=== PATIENT | male | born 1950 | race Two or more races ===

== ENCOUNTER 2018-06-07 13:09 | Emergency (ER) | payer MEDICARE ==
[~2018-06-07] VITALS: Ht 180.3 cm; Wt 78.9 kg
[~2018-06-07 13:09] MED LIST: ASPI-498 PO; FERR-7 PO; FURO40TA4 PO; MET25T PO; POTA20TA53 PO
[2018-06-07 14:56] LABS: Basophils # (auto) 0 uL; Basophils % (auto) 0.5 % (0.0-2.0); Eosinophils # (auto) 0.2 uL; Eosinophils % (auto) 2.5 % (0.0-7.0); Hematocrit 37.2 % (41.0-53.0); Hemoglobin 12.2 g/dL (13.5-17.5); Mean Corpuscular Hemoglobin 32.3 pg (28.0-32.0); Mean Corpuscular Hgb Conc. 32.8 g/dL (32.0-36.0); Mean Corpuscular Volume 98.5 fL (80.0-100.0); Monocytes % (auto) 12.1 % (0.0-12.0); Neutrophils # (auto) 5.3 uL; Neutrophils % (auto) 61.9 % (37.0-80.0); Nucleated Red Blood Cells % 0.1 %; Platelet Count (auto) 324 10^3/uL (140-450); Red Blood Cells 3.78 10^6/uL (4.5-5.90); Red Cell Distribution Width 17.8 % (11.8-14.3); White Blood Cell 8.6 10^3/uL (4.4-10.8)
[2018-06-07 15:12] LABS: Albumin 3.2 g/dL (3.4-5.0); Anion Gap 4 (5-15); Calcium 8.7 mg/dL (8.5-10.1); Carbon Dioxide 27 mmol/L (21-32); Chloride 106 mmol/L (98-107); Glucose 97 mg/dL (74-106); Potassium 5.2 mmol/L (3.5-5.1); Sodium 137 mmol/L (136-145)
[2018-06-07 15:18] LABS: Alanine Aminotransferase 34 U/L (16-61); Alkaline Phosphatase 171 U/L (45-117); Aspartate Aminotransferase 20 U/L (15-37); Bilirubin, Total 0.5 mg/dL (0.2-1.0); GFR African American 102 mL/min; GFR Non-African American 84 mL/min; Total Protein 8.1 g/dL (6.4-8.2)
[2018-06-07 15:26] LABS: BUN/Creatinine Ratio 11.6; Blood Urea Nitrogen 11 mg/dL (7-18)
[2018-06-07 18:22] VITALS: BP 124/67
== END 2018-06-07 19:12 | disposition home or self-care (01) ==
LOC: ER 13:09
DX: R20.2 Paresthesia of skin (principal); R20.0 Anesthesia of skin; D64.9 Anemia, unspecified; I25.810 Atherosclerosis of coronary artery bypass graft(s) without angina pectoris; E78.5 Hyperlipidemia, unspecified; I10 Essential (primary) hypertension; F17.210 Nicotine dependence, cigarettes, uncomplicated; Z95.1 Presence of aortocoronary bypass graft
CPT/HCPCS: 36415; 80053; 84132; 84484; 85025; 93005

== ENCOUNTER → 2018-06-11 | Outpatient (CLI) | payer MEDICARE | END | disposition home or self-care (01) | LOC: LAB 14:55 | PROVIDERS: ATTEND Thoracic Surgery (Cardiothoracic Vascular Surgery) | DX: T14.8XXA Other injury of unspecified body region, initial encounter (principal) | CPT/HCPCS: 87205 ==

== ENCOUNTER → 2018-06-30 | Outpatient (CLI) | payer MEDICARE ==
[2018-06-30 13:40] LABS: Albumin 3.4 g/dL (3.4-5.0); Bilirubin, Direct 0.1 mg/dL (0-0.2); Bilirubin, Total 0.3 mg/dL (0.2-1.0); Total Protein 7.8 g/dL (6.4-8.2)
== END | disposition home or self-care (01) ==
LOC: LAB 12:39
PROVIDERS: ATTEND Internal Medicine
DX: R94.5 Abnormal results of liver function studies (principal)
CPT/HCPCS: 36415; 80076

== ENCOUNTER → 2018-07-31 | Outpatient (CLI) | payer MEDICARE ==
[~2018-07-31] MED LIST changes: +ATOR10TA PO; +ATOR10TA52; +LORA-654; +LORA-654 PO; +METF-370 PO; +METF-869
[2018-07-31 13:11] LABS: Albumin 3.2 g/dL (3.4-5.0); Bilirubin, Direct 0.1 mg/dL (0-0.2); Bilirubin, Total 0.4 mg/dL (0.2-1.0); Total Protein 7.6 g/dL (6.4-8.2)
== END | disposition home or self-care (01) ==
LOC: LAB 11:16
PROVIDERS: ATTEND Internal Medicine
DX: N40.0 Benign prostatic hyperplasia without lower urinary tract symptoms (principal); R73.03 Prediabetes; R94.5 Abnormal results of liver function studies; I11.0 Hypertensive heart disease with heart failure; I50.20 Unspecified systolic (congestive) heart failure
CPT/HCPCS: 36415; 80061; 80076; 83036; 84153

== ENCOUNTER → 2018-08-13 | Outpatient (CLI) | payer MEDICARE ==
[~2018-08-13] MED LIST changes: -ATOR10TA PO; -ATOR10TA52; -LORA-654; -LORA-654 PO; -METF-370 PO; -METF-869
== END | disposition home or self-care (01) ==
LOC: LAB 12:18
PROVIDERS: ATTEND Internal Medicine
DX: E11.9 Type 2 diabetes mellitus without complications (principal); I11.0 Hypertensive heart disease with heart failure; I50.20 Unspecified systolic (congestive) heart failure; F17.210 Nicotine dependence, cigarettes, uncomplicated; E78.5 Hyperlipidemia, unspecified
CPT/HCPCS: 36415; 83880; 84443

== ENCOUNTER 2018-08-16 16:24 | Inpatient (IN) | payer MEDICARE ==
[~2018-08-16] VITALS: Ht 180.3 cm; Wt 88.0 kg
[2018-08-16 17:39] LABS: Basophils # (auto) 0 uL; Basophils % (auto) 0.6 % (0.0-2.0); Eosinophils # (auto) 0.2 uL; Eosinophils % (auto) 2.1 % (0.0-7.0); Hematocrit 40.1 % (41.0-53.0); Hemoglobin 12.9 g/dL (13.5-17.5); Lymphocytes # (auto) 1.2 uL; Lymphocytes % (auto) 14.4 % (10.0-50.0); Mean Corpuscular Hemoglobin 31.5 pg (28.0-32.0); Mean Corpuscular Hgb Conc. 32.2 g/dL (32.0-36.0); Mean Corpuscular Volume 97.8 fL (80.0-100.0); Monocytes # (auto) 0.8 uL; Neutrophils % (auto) 72.9 % (37.0-80.0); Nucleated Red Blood Cells % 0.1 %; Platelet Count (auto) 276 10^3/uL (140-450); Red Cell Distribution Width 15.9 % (11.8-14.3); White Blood Cell 8.2 10^3/uL (4.4-10.8)
[2018-08-16 17:51] LABS: Albumin 3.2 g/dL (3.4-5.0); BUN/Creatinine Ratio 18.2; Potassium 4.2 mmol/L (3.5-5.1)
[2018-08-16 17:55] LABS: Bilirubin, Total 0.5 mg/dL (0.2-1.0); Total Protein 7.7 g/dL (6.4-8.2)
[2018-08-16] MEDS ORDERED: ASPirin 81 mg TAB PO ONE ×2 (18:00→18:45)
[2018-08-16] MEDS ORDERED: cefTRIAXone 1GM/50ML D5W 50 ML IV ONE (18:00)
[2018-08-16] MEDS ORDERED: ATOR10TA52 (18:40)
[2018-08-16] MEDS ORDERED: METF-869 (18:40)
[2018-08-16] MEDS ORDERED: LORA-654 (18:40)
[2018-08-16 19:11] LABS: INR 0.96 (0.9-1.15); Partial Thromboplastin Time 28.2 sec (23.78-33.04); Prothrombin Time 10.3 sec (9.27-12.13)
[2018-08-16] MEDS ORDERED: ACETAMINOPHEN 500 MG TAB PO PRN (20:15)
[2018-08-16] MEDS ORDERED: ONDANSETRON HCL 4 MG/2 ML VIAL IV PRN (20:15)
[2018-08-16] MEDS ORDERED: MORPHINE SULF INJ 2 MG/ML SYRINGE 1ML IV PRN (20:15)
[2018-08-16] MEDS ORDERED: LORazepam 0.5 MG TAB PO PRN (20:15)
[2018-08-16] MEDS ORDERED: FUROSEMIDE 20 MG/2 ML VIAL IV ONE (20:15)
[2018-08-16] MEDS: DOXYCYCLINE 100MG/250ML 250 ML IV SCH (20:43)
[2018-08-16 22:00] VITALS: BP 121/71
[2018-08-16] MEDS ORDERED: ATORVASTATIN 20 MG TAB PO SCH (22:00)
[2018-08-16 22:06] VITALS: BP 121/71
[2018-08-16] MEDS: METOPROLOL TARTRATE 25 MG TAB PO SCH (22:38)
[2018-08-16] MEDS ORDERED: METF-370 PO (23:22)
[2018-08-16] MEDS ORDERED: ATOR10TA PO (23:22)
[2018-08-16] MEDS ORDERED: FURO40TA4 PO (23:22)
[2018-08-16] MEDS ORDERED: LORA-654 PO (23:22)
[2018-08-17 02:28] LABS: Basophils # (auto) 0.1 uL; Basophils % (auto) 1.2 % (0.0-2.0); Eosinophils # (auto) 0.1 uL; Eosinophils % (auto) 0.8 % (0.0-7.0); Hematocrit 39.6 % (41.0-53.0); Lymphocytes % (auto) 18.7 % (10.0-50.0); Mean Corpuscular Hemoglobin 31.9 pg (28.0-32.0); Mean Corpuscular Hgb Conc. 32.8 g/dL (32.0-36.0); Mean Corpuscular Volume 97.3 fL (80.0-100.0); Monocytes # (auto) 1.1 uL; Monocytes % (auto) 10.7 % (0.0-12.0); Neutrophils # (auto) 7.2 uL; Neutrophils % (auto) 68.6 % (37.0-80.0); Platelet Count (auto) 272 10^3/uL (140-450); Red Blood Cells 4.07 10^6/uL (4.5-5.90); Red Cell Distribution Width 15.6 % (11.8-14.3); White Blood Cell 10.4 10^3/uL (4.4-10.8)
[2018-08-17 02:52] LABS: Anion Gap 6 (5-15); BUN/Creatinine Ratio 16.2; Blood Urea Nitrogen 16 mg/dL (7-18); Calcium 8.8 mg/dL (8.5-10.1); Carbon Dioxide 25 mmol/L (21-32); Chloride 107 mmol/L (98-107); GFR African American 97 mL/min; GFR Non-African American 80 mL/min; Glucose 110 mg/dL (74-106); Potassium 3.9 mmol/L (3.5-5.1); Sodium 138 mmol/L (136-145)
[2018-08-17] MEDS ORDERED: FUROSEMIDE 40 MG/4 ML VIAL IV SCH (06:00)
[2018-08-17 08:00] VITALS: BP 128/74
[2018-08-17] MEDS: DOXYCYCLINE 100MG/250ML 250 ML IV SCH ×2 (08:04→20:26)
[2018-08-17 09:00] VITALS: BP 124/72
[2018-08-17] MEDS: PANTOPRAZOLE 40 MG TAB PO SCH (10:43)
[2018-08-17] MEDS: ASPirin-EC 81 mg tab PO SCH (10:43)
[2018-08-17] MEDS: METOPROLOL TARTRATE 25 MG TAB PO SCH ×2 (10:46→22:10)
[2018-08-17] MEDS ORDERED: IOHEXOL 300 MG/ML 100ML BOTTLE IJ ONE (12:59)
[2018-08-17 13:00] VITALS: BP 126/74
[2018-08-17 15:14] LABS: Potassium 3.9 mmol/L (3.5-5.1)
[2018-08-17 15:21] LABS: Albumin 2.7 g/dL (3.4-5.0); BUN/Creatinine Ratio 17.7; Bilirubin, Total 0.6 mg/dL (0.2-1.0); Calcium 8.7 mg/dL (8.5-10.1); Total Protein 6.9 g/dL (6.4-8.2)
[2018-08-17] MEDS: FUROSEMIDE 40 MG/4 ML VIAL IV SCH ×2 (15:48→22:11)
[2018-08-17] MEDS: HEPARIN SODIUM (PORCINE) 5000 UNITS/ML 1ML VIAL SC SCH ×2 (15:53→22:09)
[2018-08-17 20:00] VITALS: BP 113/66
[2018-08-17 21:52] VITALS: BP 113/66
[2018-08-17] MEDS: ATORVASTATIN 20 MG TAB PO SCH (22:10)
[2018-08-18 05:14] VITALS: BP 133/73
[2018-08-18] MEDS: FUROSEMIDE 40 MG/4 ML VIAL IV SCH ×3 (05:59→22:00)
[2018-08-18] MEDS: HEPARIN SODIUM (PORCINE) 5000 UNITS/ML 1ML VIAL SC SCH ×3 (06:01→21:17)
[2018-08-18 07:19] LABS: Basophils # (auto) 0 uL; Basophils % (auto) 0.6 % (0.0-2.0); Eosinophils # (auto) 0.2 uL; Eosinophils % (auto) 2.9 % (0.0-7.0); Hematocrit 38.5 % (41.0-53.0); Hemoglobin 12.7 g/dL (13.5-17.5); Lymphocytes # (auto) 1.7 uL; Lymphocytes % (auto) 22.2 % (10.0-50.0); Mean Corpuscular Hemoglobin 31.8 pg (28.0-32.0); Mean Corpuscular Hgb Conc. 32.9 g/dL (32.0-36.0); Mean Corpuscular Volume 96.6 fL (80.0-100.0); Monocytes # (auto) 0.8 uL; Neutrophils # (auto) 4.9 uL; Neutrophils % (auto) 64.3 % (37.0-80.0); Nucleated Red Blood Cells % 0.1 %; Platelet Count (auto) 242 10^3/uL (140-450); Red Blood Cells 3.98 10^6/uL (4.5-5.90); Red Cell Distribution Width 15.8 % (11.8-14.3); White Blood Cell 7.7 10^3/uL (4.4-10.8)
[2018-08-18 08:00] VITALS: BP 130/71
[2018-08-18] MEDS: DOXYCYCLINE 100MG/250ML 250 ML IV SCH ×2 (08:20→20:23)
[2018-08-18] MEDS: PANTOPRAZOLE 40 MG TAB PO SCH (09:41)
[2018-08-18] MEDS: METOPROLOL TARTRATE 25 MG TAB PO SCH ×2 (09:42→22:00)
[2018-08-18] MEDS: ASPirin-EC 81 mg tab PO SCH (09:42)
[2018-08-18] MEDS: CEFTRIAXONE SODIUM 2 GM in D5W 5% 50 ML IV SCH (13:50)
[2018-08-18 15:56] LABS: Alcohol, Urine < 3.0 mg/dL (0-5); Amphetamine Screen, Urine NEGATIVE (NEGATIVE); Barbiturate Scree,Urine NEGATIVE (NEGATIVE); Benzodiazephine Screen, Urine NEGATIVE (NEGATIVE); Cannabinoid Screen, Urine NEGATIVE (NEGATIVE); Cocaine Screen, Urine NEGATIVE (NEGATIVE); Opiate Scree,Urine NEGATIVE (NEGATIVE); Phencyclidine Screen, Urine NEGATIVE (NEGATIVE)
[2018-08-18 16:00] LABS: Urine Bacteria NONE SEEN /hpf (None Seen); Urine Blood Negative /uL (Negative); Urine Mucus FEW (None Seen); Urine Specific Gravity 1.013 (1.001-1.035); Urine WBC 1 /hpf (0 - 3)
[2018-08-18 20:00] VITALS: BP 116/53
[2018-08-18] MEDS: ATORVASTATIN 20 MG TAB PO SCH (21:17)
[2018-08-18 22:00] VITALS: BP 116/53
[2018-08-18] MEDS: SACUBITRIL-VALSARTAN 24mg/26mg TAB PO SCH (22:00)
[2018-08-19 04:59] VITALS: BP 128/66
[2018-08-19] MEDS: FUROSEMIDE 40 MG/4 ML VIAL IV SCH ×2 (05:21→13:05)
[2018-08-19] MEDS: HEPARIN SODIUM (PORCINE) 5000 UNITS/ML 1ML VIAL SC SCH ×2 (05:23→13:04)
[2018-08-19 06:48] LABS: Potassium 3.3 mmol/L (3.5-5.1)
[2018-08-19 06:56] LABS: Calcium 8.7 mg/dL (8.5-10.1)
[2018-08-19] MEDS ORDERED: ALBUMIN 25% 100 ML IV ONE (08:15)
[2018-08-19] MEDS ORDERED: POTASSIUM CHL 10% (20 MEQ/15ML) 15ml ORAL SOLN PO ONE (08:15)
[2018-08-19] MEDS: DOXYCYCLINE 100MG/250ML 250 ML IV SCH (08:15)
[2018-08-19 08:18] VITALS: BP 123/73
[2018-08-19] MEDS ORDERED: POTASSIUM CHLORIDE 20 MEQ, LIDOCAINE 1% (LOCAL ANESTH.) 2 ML in SODIUM CHL 0.9% 100 ML IV ONE (08:45)
[2018-08-19] MEDS: PANTOPRAZOLE 40 MG TAB PO SCH (10:02)
[2018-08-19] MEDS: SACUBITRIL-VALSARTAN 24mg/26mg TAB PO SCH (10:02)
[2018-08-19] MEDS: METOPROLOL TARTRATE 25 MG TAB PO SCH (10:03)
[2018-08-19] MEDS: ASPirin-EC 81 mg tab PO SCH (10:03)
[2018-08-19] MEDS: CEFTRIAXONE SODIUM 2 GM in D5W 5% 50 ML IV SCH (10:07)
[2018-08-19 13:01] VITALS: BP 104/66
[2018-08-19 13:30] VITALS: BP 104/66
== END 2018-08-19 16:15 | disposition home or self-care (01) | DRG 291 ==
LOC: ER 16:27 → TELE 20:18 → TELE-WESTW 21:50
PROVIDERS: ADMIT Nurse Practitioner Family; ATTEND Internal Medicine
DX: I11.0 Hypertensive heart disease with heart failure (principal); J18.9 Pneumonia, unspecified organism; J96.00 Acute respiratory failure, unspecified whether with hypoxia or hypercapnia; E44.1 Mild protein-calorie malnutrition; I24.9 Acute ischemic heart disease, unspecified; E78.5 Hyperlipidemia, unspecified; I25.10 Atherosclerotic heart disease of native coronary artery without angina pectoris; I50.43 Acute on chronic combined systolic (congestive) and diastolic (congestive) heart failure; F17.210 Nicotine dependence, cigarettes, uncomplicated; F41.9 Anxiety disorder, unspecified; I25.2 Old myocardial infarction; Z79.82 Long term (current) use of aspirin; Z82.0 Family history of epilepsy and other diseases of the nervous system; Z82.49 Family history of ischemic heart disease and other diseases of the circulatory system; Z95.1 Presence of aortocoronary bypass graft
CPT/HCPCS: 36415; 71046; 71260; 80048; 80053; 80307; 81001; 83036; 83605; 83735; 83880; 84443; 84484; 85025; 85610; 85730; 87040; 93005; 93306; 94761; 96365; 96375; G0378; J0696; J2001; J3490; J7060; P9047

== ENCOUNTER → 2018-09-02 | Outpatient (CLI) | payer MEDICARE ==
[~2018-09-02] MED LIST changes: +ATOR10TA PO; -FERR-7 PO; +LORA-654 PO; +METF-370 PO; -POTA20TA53 PO
[2018-09-02 13:33] LABS: Albumin 3.3 g/dL (3.4-5.0); Calcium 8.8 mg/dL (8.5-10.1); Potassium 4.6 mmol/L (3.5-5.1)
[2018-09-02 13:36] LABS: BUN/Creatinine Ratio 19.2; Bilirubin, Total 0.3 mg/dL (0.2-1.0); Total Protein 7.6 g/dL (6.4-8.2)
== END | disposition home or self-care (01) ==
LOC: LAB 12:41
PROVIDERS: ATTEND Internal Medicine
DX: R73.03 Prediabetes (principal); R94.5 Abnormal results of liver function studies
CPT/HCPCS: 36415; 80053; 82043

== ENCOUNTER → 2018-11-25 | Outpatient (CLI) | payer MEDICARE ==
[~2018-11-25] MED LIST changes: +ATO40T PO; -ATOR10TA PO; -FURO40TA4 PO; -LORA-654 PO; +LORA0.5T12 PO; -MET25T PO; +PANT1INJ3 PO
[2018-11-25 12:27] LABS: Albumin 3.9 g/dL (3.4-5.0)
[2018-11-25 12:32] LABS: Bilirubin, Direct 0.2 mg/dL (0-0.2); Bilirubin, Total 0.6 mg/dL (0.2-1.0); Total Protein 8.4 g/dL (6.4-8.2)
== END | disposition home or self-care (01) ==
LOC: LAB 11:24
PROVIDERS: ATTEND Internal Medicine
DX: I25.810 Atherosclerosis of coronary artery bypass graft(s) without angina pectoris (principal); R73.03 Prediabetes; R94.5 Abnormal results of liver function studies; N40.0 Benign prostatic hyperplasia without lower urinary tract symptoms
CPT/HCPCS: 36415; 80061; 80076; 83036; 84153

== ENCOUNTER → 2018-11-28 | Outpatient (CLI) | payer MEDICARE | END | disposition home or self-care (01) | LOC: XYW 08:32 | PROVIDERS: ATTEND Internal Medicine | DX: I08.3 Combined rheumatic disorders of mitral, aortic and tricuspid valves (principal); I25.10 Atherosclerotic heart disease of native coronary artery without angina pectoris; I48.91 Unspecified atrial fibrillation; I11.0 Hypertensive heart disease with heart failure; I50.43 Acute on chronic combined systolic (congestive) and diastolic (congestive) heart failure | CPT/HCPCS: 93306 ==

== ENCOUNTER 2019-01-21 10:08 | Inpatient (IN) | payer MEDICARE ==
[2019-01-20 10:15] LABS: Basophils # (auto) 0 uL; Basophils % (auto) 0.6 % (0.0-2.0); Eosinophils # (auto) 0.2 uL; Eosinophils % (auto) 2.9 % (0.0-7.0); Hematocrit 42.2 % (41.0-53.0); Hemoglobin 13.9 g/dL (13.5-17.5); Lymphocytes # (auto) 1.6 uL; Lymphocytes % (auto) 22.4 % (10.0-50.0); Mean Corpuscular Hemoglobin 31.9 pg (28.0-32.0); Mean Corpuscular Hgb Conc. 32.8 g/dL (32.0-36.0); Mean Corpuscular Volume 97.3 fL (80.0-100.0); Monocytes # (auto) 0.7 uL; Monocytes % (auto) 10.4 % (0.0-12.0); Neutrophils # (auto) 4.4 uL; Neutrophils % (auto) 63.7 % (37.0-80.0); Nucleated Red Blood Cells % 0.1 %; Platelet Count (auto) 216 10^3/uL (140-450); Red Blood Cells 4.34 10^6/uL (4.5-5.90); Red Cell Distribution Width 15.8 % (11.8-14.3)
[2019-01-20 10:48] LABS: INR 0.95 (0.9-1.15); Partial Thromboplastin Time 27.3 sec (23.64-32.05)
[2019-01-20 11:13] LABS: Albumin 4.1 g/dL (3.4-5.0); Calcium 9.6 mg/dL (8.5-10.1); Potassium 4.8 mmol/L (3.5-5.1)
[2019-01-20 11:17] LABS: BUN/Creatinine Ratio 20.6; Bilirubin, Total 0.6 mg/dL (0.2-1.0); Total Protein 8.4 g/dL (6.4-8.2)
[~2019-01-21] VITALS: Ht 180.3 cm; Wt 90.7 kg
[~2019-01-21 10:08] MED LIST changes: +CARV6.25 PO; +CLOP75TA28 PO; +ENAL2.5T PO; +FERR-20 PO; +FURO1TAB31 PO; -LORA0.5T12 PO; +POTA-220 PO
[2019-01-21] MEDS ORDERED: ANGIOMAX 250 MG VIAL IV ONE ×4 (11:01→16:19)
[2019-01-21] MEDS ORDERED: fentaNYL CITRATE 100 MCG/2 ML VL ONE ×3 (11:01→16:22)
[2019-01-21] MEDS ORDERED: LIDOCAINE 2%HCL (LOCAL ANESTH.) INJ 20ML MDV ONE (11:02)
[2019-01-21] MEDS ORDERED: SODIUM CHL 0.9% 50 ML ONE ×4 (11:02→16:20)
[2019-01-21] MEDS ORDERED: MIDAZOLAM HCL 1MG/1ML-2 ML VIAL ONE ×4 (11:02→16:23)
[2019-01-21] MEDS ORDERED: IOHEXOL 350 MG/ML 100ML IJ ONE ×2 (11:02→15:50)
[2019-01-21] MEDS ORDERED: hydrALAZINE HCL 20 MG/ML VL ONE ×2 (12:11→17:18)
[2019-01-21] MEDS ORDERED: IODIXANOL 320MG/ML 100ML BTL IV ONE ×2 (16:11→17:39)
[2019-01-21] MEDS ORDERED: NITROGLYCERIN 5MG/ML 10ML VIAL IV ONE (16:57)
[2019-01-21] MEDS ORDERED: VERAPAMIL 2.5MG/ML INJ 2ML VIAL IV ONE (16:57)
[2019-01-21] MEDS ORDERED: ACETAMINOPHEN 500 MG TAB PO PRN (17:45)
[2019-01-21] MEDS ORDERED: SODIUM CHLORIDE 0.9% 1,000 ML IV ONE ×2 (17:45→18:00)
[2019-01-21] MEDS ORDERED: MORPHINE SULF INJ 2 MG/ML SYRINGE 1ML IV PRN (17:45)
[2019-01-21] MEDS ORDERED: DEXTROSE (50%) 50ML SYRG IV PRN (17:45)
[2019-01-21] MEDS ORDERED: HYDROcodone-ACET 5/325MG TAB PO PRN (17:45)
[2019-01-21] MEDS ORDERED: ONDANSETRON HCL 4 MG/2 ML VIAL IV PRN (17:45)
[2019-01-21] MEDS ORDERED: NITROGLYCERIN 0.4 MG SL TAB SL PRN (17:45)
--- NOTE | 2019-01-21 19:45 | NUR ---
MS admit from ER AMBER TUTTLE admitted to tele/MS after SBAR received. Patient oriented to Eunice Foreman, primary RN, unit, room, bed, and unit policies regarding patient care and visiting hours. Patient weighed by bedscale and encouraged to call if they need something. All questions and concerns addressed, patient verbalized understanding. Note:
[2019-01-21 21:19] VITALS: BP 132/66
[2019-01-21] MEDS: InsuLIN REG 1unit/0.01ml Soln (100units/ml) SC SCH (21:19)
[2019-01-21] MEDS: ACCU-CHEK COMFORT CURVE STRIP VI SCH (21:20)
[2019-01-21] MEDS: SODIUM CHLOR 0.9% PF (SALINE LOCK) 10ML VIAL/SYR IV SCH (21:43)
[2019-01-21] MEDS: CARVEDILOL 3.125 MG TAB PO SCH (21:44)
[2019-01-21] MEDS: ENALAPRIL MALEATE 2.5 MG TAB PO SCH (21:44)
[2019-01-21] MEDS: ATORVASTATIN 20 MG TAB PO SCH (21:44)
[2019-01-21] MEDS: SODIUM CHLORIDE 0.9% 1,000 ML IV SCH (23:52)
[2019-01-22 05:14] VITALS: BP 121/59
[2019-01-22] MEDS: SODIUM CHLOR 0.9% PF (SALINE LOCK) 10ML VIAL/SYR IV SCH ×3 (06:03→21:55)
[2019-01-22] MEDS: ACCU-CHEK COMFORT CURVE STRIP VI SCH (06:03)
[2019-01-22] MEDS: InsuLIN REG 1unit/0.01ml Soln (100units/ml) SC SCH (06:03)
--- NOTE | 2019-01-22 08:00 | NUR ---
Opening Shift Note Assumed care of patient, awake and alert. No S/S of distress/SOB or pain. Instructed on POC and to call for assist PRN, will continue to monitor for changes Q1hr and PRN.
[2019-01-22 09:00] VITALS: BP 129/59
[2019-01-22] MEDS: POTASSIUM CHL 20 Meq TABLET PO SCH (10:03)
[2019-01-22] MEDS: FUROSEMIDE 40 MG TAB PO SCH (10:03)
[2019-01-22] MEDS: ASPirin-EC 81 mg tab PO SCH (10:03)
[2019-01-22] MEDS: CARVEDILOL 3.125 MG TAB PO SCH ×2 (10:03→21:55)
[2019-01-22] MEDS: CLOPIDOGREL BISULFATE 75 MG TAB PO SCH (10:03)
[2019-01-22] MEDS: ENALAPRIL MALEATE 2.5 MG TAB PO SCH ×2 (10:04→21:55)
[2019-01-22] MEDS: FERROUS SULFATE 325 MG TAB PO SCH (12:08)
[2019-01-22 12:41] VITALS: BP 137/61
[2019-01-22] MEDS: SODIUM CHLORIDE 0.9% 1,000 ML IV SCH (15:48)
[2019-01-22 17:05] VITALS: BP 129/95
--- NOTE | 2019-01-22 19:09 | NUR ---
OPENING NOTE Received report from day shift RN. Patient is sitting on chair at bedside with no s/s of distress noted. Patient's family is at bedside. Educated patient on POC and to use call light when in need of assistance. Patient verbalized understanding. Call light is within reach of patient. Will continue care.
[2019-01-22] MEDS: ATORVASTATIN 20 MG TAB PO SCH (21:55)
[2019-01-22 22:00] VITALS: BP 144/68
[2019-01-23 05:00] VITALS: BP 144/77
[2019-01-23] MEDS: SODIUM CHLORIDE 0.9% 1,000 ML IV SCH (05:45)
[2019-01-23] MEDS: SODIUM CHLOR 0.9% PF (SALINE LOCK) 10ML VIAL/SYR IV SCH (05:45)
[2019-01-23 06:35] LABS: Basophils # (auto) 0.1 uL; Basophils % (auto) 0.6 % (0.0-2.0); Eosinophils # (auto) 0.1 uL; Eosinophils % (auto) 1.2 % (0.0-7.0); Hematocrit 36.2 % (41.0-53.0); Lymphocytes # (auto) 1.5 uL; Lymphocytes % (auto) 17.1 % (10.0-50.0); Mean Corpuscular Hemoglobin 32.5 pg (28.0-32.0); Mean Corpuscular Hgb Conc. 33.3 g/dL (32.0-36.0); Mean Corpuscular Volume 97.9 fL (80.0-100.0); Monocytes # (auto) 1.1 uL; Monocytes % (auto) 12.1 % (0.0-12.0); Neutrophils # (auto) 6.2 uL; Platelet Count (auto) 168 10^3/uL (140-450)
[2019-01-23 06:57] LABS: BUN/Creatinine Ratio 11.7; Calcium 8.1 mg/dL (8.5-10.1); Potassium 4.1 mmol/L (3.5-5.1)
[2019-01-23 09:00] VITALS: BP 143/69
[2019-01-23] MEDS: CLOPIDOGREL BISULFATE 75 MG TAB PO SCH (09:02)
[2019-01-23] MEDS: ASPirin-EC 81 mg tab PO SCH (09:02)
[2019-01-23] MEDS: ENALAPRIL MALEATE 2.5 MG TAB PO SCH (09:02)
[2019-01-23] MEDS: CARVEDILOL 3.125 MG TAB PO SCH (09:02)
[2019-01-23] MEDS: FUROSEMIDE 40 MG TAB PO SCH (09:03)
[2019-01-23] MEDS: POTASSIUM CHL 20 Meq TABLET PO SCH (09:03)
[2019-01-23 10:56] VITALS: BP 140/71
[2019-01-23] MEDS: FERROUS SULFATE 325 MG TAB PO SCH (12:00)
--- NOTE | 2019-01-23 12:16 | NUR ---
Discharge instructions given as ordered. Encourage to follow up with PMD as instructed. All questions and concerns addressed. Patient verbalized understanding. Medication reconciliation form completed and copy given to patient. Home medications held in Pharmacy returned to patient, and needed vaccines given. IV removed with catheter intact, pressure dressing applied. Patient taken to vehicle via wheelchair with all personal belongings, accompanied by staff and family member. No distress noted at time of departure.
[2019-01-23 13:00] VITALS: BP 140/71
== END 2019-01-23 12:17 | disposition home or self-care (01) | DRG 253 ==
LOC: CATH 10:08 → EAST 10:09
PROVIDERS: ADMIT Internal Medicine; ATTEND Family Medicine
PROC: 047L3D1 Dilation of Left Femoral Artery with Intraluminal Device, using Drug-Coated Balloon, Percutaneous Approach (ICD-10-PCS; principal; 2019-01-21)
PROC: 047Q3ZZ Dilation of Left Anterior Tibial Artery, Percutaneous Approach (ICD-10-PCS; 2019-01-21)
PROC: 047U3ZZ Dilation of Left Peroneal Artery, Percutaneous Approach (ICD-10-PCS; 2019-01-21)
PROC: 047N3ZZ Dilation of Left Popliteal Artery, Percutaneous Approach (ICD-10-PCS; 2019-01-21)
PROC: 047J3DZ Dilation of Left External Iliac Artery with Intraluminal Device, Percutaneous Approach (ICD-10-PCS; 2019-01-21)
PROC: B41G1ZZ Fluoroscopy of Left Lower Extremity Arteries using Low Osmolar Contrast (ICD-10-PCS; 2019-01-21)
DX: I25.10 Atherosclerotic heart disease of native coronary artery without angina pectoris (principal); I50.42 Chronic combined systolic (congestive) and diastolic (congestive) heart failure; I70.92 Chronic total occlusion of artery of the extremities; F41.9 Anxiety disorder, unspecified; E11.51 Type 2 diabetes mellitus with diabetic peripheral angiopathy without gangrene; E78.5 Hyperlipidemia, unspecified; I11.0 Hypertensive heart disease with heart failure; Z95.1 Presence of aortocoronary bypass graft; Z95.5 Presence of coronary angioplasty implant and graft; I25.2 Old myocardial infarction; Z82.49 Family history of ischemic heart disease and other diseases of the circulatory system; Z87.891 Personal history of nicotine dependence; Z79.899 Other long term (current) drug therapy
CPT/HCPCS: 36415; 76937; 80048; 80053; 82565; 82962; 85025; 85610; 85730; 87081; G0378; J2250; J3490; Q9967

== ENCOUNTER 2019-02-25 08:59 | Inpatient (IN) | payer MEDICARE ==
[2019-02-24 10:59] LABS: Basophils # (auto) 0.1 uL; Basophils % (auto) 0.6 % (0.0-2.0); Eosinophils # (auto) 0.3 uL; Eosinophils % (auto) 3.7 % (0.0-7.0); Hematocrit 41.1 % (41.0-53.0); Hemoglobin 13.7 g/dL (13.5-17.5); Lymphocytes # (auto) 1.7 uL; Lymphocytes % (auto) 19.8 % (10.0-50.0); Mean Corpuscular Hemoglobin 32.3 pg (28.0-32.0); Mean Corpuscular Hgb Conc. 33.4 g/dL (32.0-36.0); Mean Corpuscular Volume 96.6 fL (80.0-100.0); Monocytes # (auto) 0.9 uL; Neutrophils # (auto) 5.5 uL; Neutrophils % (auto) 64.9 % (37.0-80.0); Nucleated Red Blood Cells % 0.1 %; Platelet Count (auto) 183 10^3/uL (140-450); Red Blood Cells 4.25 10^6/uL (4.5-5.90); Red Cell Distribution Width 14.7 % (11.8-14.3); White Blood Cell 8.4 10^3/uL (4.4-10.8)
[2019-02-24 11:09] LABS: INR 0.94 (0.9-1.15); Partial Thromboplastin Time 26.2 sec (23.64-32.05)
[2019-02-24 11:23] LABS: Albumin 3.8 g/dL (3.4-5.0); Calcium 9.4 mg/dL (8.5-10.1)
[2019-02-24 11:27] LABS: BUN/Creatinine Ratio 16.3; Bilirubin, Total 0.5 mg/dL (0.2-1.0); Total Protein 8.2 g/dL (6.4-8.2)
[2019-02-24 11:34] LABS: Potassium 5.8 mmol/L (3.5-5.1)
[2019-02-25] VITALS (7 sets, daily range): BP systolic 106–136; BP diastolic 46–60
[~2019-02-25] VITALS: Ht 180.3 cm; Wt 91.0 kg
[2019-02-25] MEDS ORDERED: LIDOCAINE 2%HCL (LOCAL ANESTH.) INJ 20ML MDV ONE (10:07)
[2019-02-25] MEDS ORDERED: IOHEXOL 350 MG/ML 100ML IJ ONE (10:07)
[2019-02-25] MEDS ORDERED: ANGIOMAX 250 MG VIAL IV ONE ×2 (10:09→11:33)
[2019-02-25] MEDS ORDERED: SODIUM CHL 0.9% 50 ML ONE ×2 (10:10→11:33)
[2019-02-25] MEDS ORDERED: MIDAZOLAM HCL 1MG/1ML-2 ML VIAL ONE ×3 (10:10→13:04)
[2019-02-25] MEDS ORDERED: fentaNYL CITRATE 100 MCG/2 ML VL ONE ×2 (10:10→11:30)
[2019-02-25] MEDS ORDERED: IODIXANOL 320MG/ML 100ML BTL IV ONE (13:24)
[2019-02-25 14:34] LABS: Basophils # (auto) 0 uL; Basophils % (auto) 0.5 % (0.0-2.0); Eosinophils # (auto) 0.2 uL; Eosinophils % (auto) 2.9 % (0.0-7.0); Hematocrit 35.4 % (41.0-53.0); Hemoglobin 11.5 g/dL (13.5-17.5); Lymphocytes # (auto) 1.9 uL; Lymphocytes % (auto) 32.6 % (10.0-50.0); Mean Corpuscular Hgb Conc. 32.5 g/dL (32.0-36.0); Mean Corpuscular Volume 98.5 fL (80.0-100.0); Monocytes # (auto) 0.6 uL; Monocytes % (auto) 10.6 % (0.0-12.0); Neutrophils # (auto) 3.2 uL; Neutrophils % (auto) 53.4 % (37.0-80.0); Nucleated Red Blood Cells % 0.1 %; Platelet Count (auto) 184 10^3/uL (140-450); Red Blood Cells 3.59 10^6/uL (4.5-5.90); Red Cell Distribution Width 14.7 % (11.8-14.3); White Blood Cell 5.9 10^3/uL (4.4-10.8)
[2019-02-25] MEDS ORDERED: DEXTROSE (50%) 50ML SYRG IV PRN (14:45)
[2019-02-25] MEDS ORDERED: MORPHINE SULF INJ 2 MG/ML SYRINGE 1ML IV PRN (14:45)
[2019-02-25] MEDS ORDERED: NITROGLYCERIN 0.4 MG SL TAB SL PRN (14:45)
[2019-02-25] MEDS ORDERED: HYDROcodone-ACET 5/325MG TAB PO PRN (14:45)
[2019-02-25] MEDS ORDERED: ONDANSETRON HCL 4 MG/2 ML VIAL IV PRN (14:45)
[2019-02-25] MEDS ORDERED: ACETAMINOPHEN 500 MG TAB PO PRN (14:45)
[2019-02-25] MEDS ORDERED: KETOROLAC TROMETH 30 MG/ML 1ML VIAL IV ONE (15:00)
[2019-02-25] MEDS ORDERED: ONDANSETRON HCL 4 MG/2 ML VIAL ONE (15:06)
[2019-02-25] MEDS ORDERED: NOREPINEPHRINE 8 MG/250ML KIT 250 ML IV ONE (15:08)
[2019-02-25] MEDS ORDERED: NOREPINEPHRINE 8 MG/250ML KIT 250 ML IV SCH (15:30)
[2019-02-25] MEDS: SODIUM CHLORIDE 0.9% 1,000 ML IV SCH (15:30)
[2019-02-25] MEDS ORDERED: PANT40TA2 PO (15:52)
[2019-02-25 16:04] LABS: Albumin 2.8 g/dL (3.4-5.0); Calcium 8.2 mg/dL (8.5-10.1); Potassium 4.5 mmol/L (3.5-5.1)
[2019-02-25 16:09] LABS: BUN/Creatinine Ratio 20.6; Bilirubin, Total 0.4 mg/dL (0.2-1.0); Total Protein 6.2 g/dL (6.4-8.2)
[2019-02-25] MEDS: InsuLIN REG 1unit/0.01ml Soln (100units/ml) SC SCH ×2 (17:00→21:32)
--- NOTE | 2019-02-25 17:00 | NUR ---
Pt being admitted to ICU TUTTLEAMBER POWELL admitted to ICU via gurney on security public safety officer, and portable 02. Patient transfered to bed, connected to ICU monitoring and oxygen, and weighed by bedscale. Patient oriented to Boni martinez RN, unit, room, bed, and unit policies regarding patient care and visiting hours. All questions and concerns addressed, patient verbalized understanding. Patient admitted from general laborer S/P peripheral angiogram, access site to left femoral with hematoma; area is soft. Dressing to access site is CDI. Pedal pulses are obtained via doppler. Blood pressure stable. No active bleeding noted.
[2019-02-25] MEDS: ACCU-CHEK COMFORT CURVE STRIP VI SCH ×2 (17:13→21:32)
[2019-02-25] MEDS ORDERED: GABA100C PO (17:44)
[2019-02-25] MEDS ORDERED: ATORVASTATIN 20 MG TAB PO SCH (18:00)
[2019-02-25 18:06] LABS: Hematocrit 32.6 % (41.0-53.0); Hemoglobin 10.8 g/dL (13.5-17.5)
--- NOTE | 2019-02-25 19:58 | NUR ---
ADMITTED TODAY. INNOVA STENT PLACED INTO THE SFA . LOST BLOOD INTO THE LEFT GROIN DURING PROCEDURE. AREA IS VERY SWOLLEN. SITE /COLORATION MARKED WITH PEN. DRESSING OVER SITE IS CLEAN AND DRY. PLAN: FUTURE WORK BY MD ON LEFT LEG. PEDALS WITH DOPPLER. PATIENT IS ALERT. ORIENTED. ILDEFONSO. SPEECH CLEAR. LYING FLAT. NSR 80S. MAY SIT UP AT 2130. 2LNP. NO DYSPNEA. O2 SAT 99%. ATE DINNER. DRINKING COFFEE. HAS 2 PERIPHERAL IVS. NORMAL SALINE AT 75CC/HR. NO REDNESS OR SWELLING AT IV SITE. MOVES ALL EXTREMITIES WELL. H&H Q 4 HRS. NEXT DUE AT 2200. 2 UPC ON HOLD.
--- NOTE | 2019-02-25 21:00 | NUR ---
LOWER LEGS ARE THIN AND TANNED. RIGHT MID TORRES IS A QUARTER SIZE SCAB. PEDALS WITH DOPPLER ONLY. LEGS ARE WARM DOWN TO ANKLES. NO EDEMA.
[2019-02-25] MEDS: CARVEDILOL 3.125 MG TAB PO SCH (21:58)
--- NOTE | 2019-02-25 22:00 | NUR ---
REVIEWED MED RECONCILIATION. GAVE HIM INFORMATION ON THE TIMES HE WAS IN PROCEDURE AND IN RECOVERY. COREG GIVEN. NSR WITHOUT ECTOPY. MAIN IV AT 75CC/H. NO REDNESS , SWELLING OR DRNG AT SITE OF IVS. RIGHT GROIN SHOWS NO INCREASE IN SIZE. THE PATIENT FEELS THE SWELLING IS GOING DOWN. PEDAL PULSES WITH DOPPLER. WEAK EVEN WITH DOPPLER. DOES NOT WISH TO HAVE THE HEAD OF HIS BED ELEVATED. HIS PHILOSOPHY IS JUST TO REMAIN QUIET AND NOT GIVE THE GROIN A REASON TO GET WORSE OR BLEED.
[2019-02-25 22:15] LABS: Hematocrit 29.8 % (41.0-53.0); Hemoglobin 9.8 g/dL (13.5-17.5)
--- NOTE | 2019-02-25 22:59 | NUR ---
DR LORENZANA IS RISK CONTROL CONSULTANT FOR DR CAM. CALL PLACED. H&H IS LOWER. 2UPC ON HOLD.
[2019-02-26] VITALS (14 sets, daily range): BP systolic 102–142; BP diastolic 42–59
[2019-02-26] MEDS: SODIUM CHLORIDE 0.9% 1,000 ML IV SCH
--- NOTE | 2019-02-26 | NUR ---
ALERT. ORIENTED. VSS. LUNGS CLEAR. ROOM AIR. NO NAUSEA, DYSPNEA, DIAPHORESIS OR CHEST PAIN. LEFT GROIN : NO CHANGE IN SWELLING, REDNESS OR ECCHYMOSIS. SMALL 2X2 DRESSING CLEAN AND DRY. DOPPLERED PULSES IN FEET. NO EDEMA. NSR WITHOUT ECTOPY.
--- NOTE | 2019-02-26 01:57 | NUR ---
AM LAB DRAW
[2019-02-26 02:10] LABS: Basophils # (auto) 0.1 uL; Basophils % (auto) 0.9 % (0.0-2.0); Eosinophils # (auto) 0 uL; Eosinophils % (auto) 0.1 % (0.0-7.0); Hematocrit 27.7 % (41.0-53.0); Hemoglobin 9.3 g/dL (13.5-17.5); Lymphocytes # (auto) 1.1 uL; Lymphocytes % (auto) 10.2 % (10.0-50.0); Mean Corpuscular Hemoglobin 32.7 pg (28.0-32.0); Mean Corpuscular Hgb Conc. 33.7 g/dL (32.0-36.0); Mean Corpuscular Volume 96.9 fL (80.0-100.0); Monocytes % (auto) 9.3 % (0.0-12.0); Neutrophils # (auto) 8.3 uL; Neutrophils % (auto) 79.5 % (37.0-80.0); Nucleated Red Blood Cells % 0.1 %; Platelet Count (auto) 159 10^3/uL (140-450); Red Blood Cells 2.85 10^6/uL (4.5-5.90); Red Cell Distribution Width 14.7 % (11.8-14.3); White Blood Cell 10.5 10^3/uL (4.4-10.8)
[2019-02-26 02:26] LABS: BUN/Creatinine Ratio 19.8; Calcium 7.9 mg/dL (8.5-10.1); INR 0.99 (0.9-1.15); Partial Thromboplastin Time 24.3 sec (23.64-32.05); Potassium 4.3 mmol/L (3.5-5.1)
--- NOTE | 2019-02-26 04:00 | NUR ---
VSS. ROOM AIR. MAINTENANCE FLUID AT 75CC /HR. IV SITE SHOWS NO REDNESS OR SWELLING. RIGHT GROIN SITE STABLE. NSR WITHOUT ECTOPY.
--- NOTE | 2019-02-26 06:15 | NUR ---
CALLED LAB FOR 0600 LAB DRAW.
[2019-02-26] MEDS: ACCU-CHEK COMFORT CURVE STRIP VI SCH ×2 (06:19→13:20)
--- NOTE | 2019-02-26 06:45 | NUR ---
CALLED LAB FOR 0600 LAB DRAW
[2019-02-26] MEDS: InsuLIN REG 1unit/0.01ml Soln (100units/ml) SC SCH ×3 (07:00→13:20)
[2019-02-26 07:14] LABS: Hematocrit 26.9 % (41.0-53.0); Hemoglobin 9.1 g/dL (13.5-17.5)
--- NOTE | 2019-02-26 07:30 | NUR ---
RECEIVED PT FROM BROOMMAKER, BEDSIDE REPORT & ENDORSEMENT RECEIVED, WE BOTH CHECKED PT'S LT GROIN HEMATOMA AND DOPPLER PULSES. BOTH IV'S BENIGN & PATENT, VSS, PT AFEBRILE, DENIES ANY PAIN AT THIS TIME. PT ÁNGELA STATUS CURRENTLY ON ICU DUE TO ÁNGELA BED UNAVAILABILITY. ALL MONITOR ALARMS VERIFIED. ALL AM LABS REVIEWED.
--- NOTE | 2019-02-26 07:33 | NUR ---
PATIENT REFUSED INSULIN. WANTS TO GO BACK ON METFORMIN.
[2019-02-26] MEDS: CARVEDILOL 3.125 MG TAB PO SCH (09:49)
[2019-02-26] MEDS: FERROUS SULFATE 325 MG TAB PO SCH ×3 (09:50→10:00)
[2019-02-26] MEDS ORDERED: ASPirin-EC 81 mg tab PO SCH (10:00)
[2019-02-26] MEDS ORDERED: ENALAPRIL MALEATE 2.5 MG TAB PO SCH (10:00)
[2019-02-26] MEDS ORDERED: CLOPIDOGREL BISULFATE 75 MG TAB PO SCH (10:00)
[2019-02-26] MEDS ORDERED: PANTOPRAZOLE 40 MG TAB PO SCH (10:00)
[2019-02-26] MEDS ORDERED: POTASSIUM CHL 20 Meq TABLET PO SCH (10:00)
[2019-02-26] MEDS ORDERED: FUROSEMIDE 40 MG TAB PO SCH (10:00)
--- NOTE | 2019-02-26 14:20 | NUR ---
PT AMBULATED TWICE AROUND THE UNIT VSS. 102/49, SPO2 99%, PT HAS DISCHARGE ORDERS, PT WILL GO HOME WITH SAME HOME MEDICATIONS, LT GROIN HEMATOMA REMAINS UNCHANGED FROM THIS AM. PT HAS VOIDED AND HAD A BOWEL MOVEMENT THIS AM. PT'S AT BED SIDE AND IS READY TO TAKE PT HOME. DR. MYERS HAS ALREADY ASSESSED PT AND HAS AGREED WITH DR. CAM TO DISCHARGE PT HOME.
== END 2019-02-27 15:24 | disposition home or self-care (01) | DRG 908 ==
LOC: CATH 08:59 → ICU WEST 09:00
PROVIDERS: ADMIT Internal Medicine; ATTEND Internal Medicine
PROC: 047K3DZ Dilation of Right Femoral Artery with Intraluminal Device, Percutaneous Approach (ICD-10-PCS; principal; 2019-02-25)
PROC: 04CK3ZZ Extirpation of Matter from Right Femoral Artery, Percutaneous Approach (ICD-10-PCS; 2019-02-25)
PROC: 047M3ZZ Dilation of Right Popliteal Artery, Percutaneous Approach (ICD-10-PCS; 2019-02-25)
PROC: 047P3ZZ Dilation of Right Anterior Tibial Artery, Percutaneous Approach (ICD-10-PCS; 2019-02-25)
PROC: 047T3ZZ Dilation of Right Peroneal Artery, Percutaneous Approach (ICD-10-PCS; 2019-02-25)
PROC: 04CM3ZZ Extirpation of Matter from Right Popliteal Artery, Percutaneous Approach (ICD-10-PCS; 2019-02-25)
PROC: 04CP3ZZ Extirpation of Matter from Right Anterior Tibial Artery, Percutaneous Approach (ICD-10-PCS; 2019-02-25)
PROC: 04CT3ZZ Extirpation of Matter from Right Peroneal Artery, Percutaneous Approach (ICD-10-PCS; 2019-02-25)
PROC: B41G1ZZ Fluoroscopy of Left Lower Extremity Arteries using Low Osmolar Contrast (ICD-10-PCS; 2019-02-25)
PROC: B41F1ZZ Fluoroscopy of Right Lower Extremity Arteries using Low Osmolar Contrast (ICD-10-PCS; 2019-02-25)
DX: L76.32 Postprocedural hematoma of skin and subcutaneous tissue following other procedure (principal); D62 Acute posthemorrhagic anemia; I73.9 Peripheral vascular disease, unspecified; I25.10 Atherosclerotic heart disease of native coronary artery without angina pectoris; Z95.1 Presence of aortocoronary bypass graft; I10 Essential (primary) hypertension; F41.9 Anxiety disorder, unspecified; E78.5 Hyperlipidemia, unspecified; E11.9 Type 2 diabetes mellitus without complications; Y83.8 Other surgical procedures as the cause of abnormal reaction of the patient, or of later complication, without mention of misadventure at the time of the procedure; Y92.238 Other place in hospital as the place of occurrence of the external cause; Z79.899 Other long term (current) drug therapy
CPT/HCPCS: 36415; 37225; 37227; 37229; 75716; 76705; 80048; 80053; 82962; 85014; 85018; 85025; 85610; 85730; 86850; 86900; 86901; 86920; 87081; 99152; 99153; C1725; C1876; G0378; J1815; J2250; J2405; Q9967

== ENCOUNTER → 2019-03-02 | Outpatient (CLI) | payer MEDICARE ==
[~2019-03-02] MED LIST changes: +GABA100C PO; -PANT1INJ3 PO; +PANT40TA2 PO
[2019-03-02 11:38] LABS: Basophils # (auto) 0 uL; Basophils % (auto) 0.3 % (0.0-2.0); Eosinophils # (auto) 0.1 uL; Eosinophils % (auto) 1.3 % (0.0-7.0); Hematocrit 28.3 % (41.0-53.0); Hemoglobin 9.1 g/dL (13.5-17.5); Lymphocytes % (auto) 11.8 % (10.0-50.0); Mean Corpuscular Hemoglobin 31.4 pg (28.0-32.0); Mean Corpuscular Hgb Conc. 32.1 g/dL (32.0-36.0); Mean Corpuscular Volume 97.8 fL (80.0-100.0); Monocytes # (auto) 0.7 uL; Monocytes % (auto) 8.4 % (0.0-12.0); Neutrophils # (auto) 6.6 uL; Neutrophils % (auto) 78.2 % (37.0-80.0); Nucleated Red Blood Cells % 0.2 %; Platelet Count (auto) 275 10^3/uL (140-450); Red Blood Cells 2.89 10^6/uL (4.5-5.90); White Blood Cell 8.4 10^3/uL (4.4-10.8)
== END | disposition home or self-care (01) ==
LOC: LAB 11:07
PROVIDERS: ATTEND Internal Medicine
DX: D64.9 Anemia, unspecified (principal)
CPT/HCPCS: 36415; 85025

== ENCOUNTER → 2019-03-18 | Outpatient (CLI) | payer MEDICARE ==
[2019-03-18 12:35] LABS: Basophils # (auto) 0.1 uL; Basophils % (auto) 0.7 % (0.0-2.0); Eosinophils # (auto) 0.3 uL; Eosinophils % (auto) 3.6 % (0.0-7.0); Hemoglobin 9.6 g/dL (13.5-17.5); Lymphocytes # (auto) 1.7 uL; Mean Corpuscular Hemoglobin 30.8 pg (28.0-32.0); Mean Corpuscular Hgb Conc. 32.1 g/dL (32.0-36.0); Mean Corpuscular Volume 96.1 fL (80.0-100.0); Monocytes # (auto) 0.9 uL; Monocytes % (auto) 11.5 % (0.0-12.0); Neutrophils # (auto) 5.1 uL; Neutrophils % (auto) 63.2 % (37.0-80.0); Platelet Count (auto) 378 10^3/uL (140-450); Red Blood Cells 3.12 10^6/uL (4.5-5.90); Red Cell Distribution Width 16.7 % (11.8-14.3); White Blood Cell 8.1 10^3/uL (4.4-10.8)
[2019-03-18 13:04] LABS: Albumin 3.2 g/dL (3.4-5.0); Calcium 8.8 mg/dL (8.5-10.1); Potassium 4.7 mmol/L (3.5-5.1)
[2019-03-18 13:09] LABS: Bilirubin, Total 0.5 mg/dL (0.2-1.0); Total Protein 7.6 g/dL (6.4-8.2)
== END | disposition home or self-care (01) ==
LOC: LAB 12:11
PROVIDERS: ATTEND Internal Medicine
DX: E11.9 Type 2 diabetes mellitus without complications (principal); I11.0 Hypertensive heart disease with heart failure; I50.9 Heart failure, unspecified
CPT/HCPCS: 36415; 80053; 83036; 85025

== ENCOUNTER 2019-04-20 06:37 | Inpatient (IN) | payer MEDICARE ==
[2019-04-20] VITALS (10 sets, daily range): BP systolic 128–160; BP diastolic 28–67
[~2019-04-20] VITALS: Ht 177.8 cm; Wt 93.8 kg
[2019-04-20] MEDS ORDERED: SODIUM CHLORIDE 0.9% 1,000 ML IV ONE (06:40)
[2019-04-20 07:21] LABS: Basophils # (auto) 0.1 uL; Lymphocytes # (auto) 2.3 uL; Monocytes # (auto) 1.2 uL; Red Cell Distribution Width 16.6 % (11.8-14.3)
[2019-04-20 07:24] LABS: Basophils % (auto) 0.6 % (0.0-2.0); Eosinophils # (auto) 0.2 uL; Eosinophils % (auto) 1.4 % (0.0-7.0); Hematocrit 17.5 % (41.0-53.0); Lymphocytes % (auto) 20.1 % (10.0-50.0); Mean Corpuscular Hemoglobin 29.6 pg (28.0-32.0); Mean Corpuscular Volume 92.5 fL (80.0-100.0); Monocytes % (auto) 10.7 % (0.0-12.0); Neutrophils # (auto) 7.6 uL; Neutrophils % (auto) 67.2 % (37.0-80.0); Platelet Count (auto) 202 10^3/uL (140-450); Red Blood Cells 1.89 10^6/uL (4.5-5.90); White Blood Cell 11.4 10^3/uL (4.4-10.8)
[2019-04-20 07:26] LABS: Hemoglobin 5.6 g/dL (13.5-17.5)
[2019-04-20 07:30] LABS: INR 1.07 (0.9-1.15); Partial Thromboplastin Time 22.3 sec (23.64-32.05)
[2019-04-20 07:33] LABS: Albumin 2.6 g/dL (3.4-5.0); BUN/Creatinine Ratio 27.8; Calcium 7.3 mg/dL (8.5-10.1); Potassium 4.1 mmol/L (3.5-5.1)
[2019-04-20 07:38] LABS: Bilirubin, Total 0.2 mg/dL (0.2-1.0); Total Protein 5.6 g/dL (6.4-8.2)
[2019-04-20] MEDS ORDERED: ENOXAPARIN SOD 100 MG/1 ML SYRINGE SC ONE (08:00)
[2019-04-20] MEDS ORDERED: DEXTROSE (50%) 50ML SYRG IV PRN (09:30)
[2019-04-20] MEDS ORDERED: FUROSEMIDE 20 MG/2 ML VIAL IV ONE (09:30)
[2019-04-20] MEDS: GABAPENTIN 100 MG CAP PO SCH ×2 (10:00→22:22)
[2019-04-20] MEDS: FERROUS SULFATE 325 MG TAB PO SCH (10:00)
[2019-04-20] MEDS: CARVEDILOL 3.125 MG TAB PO SCH ×2 (10:00→22:21)
[2019-04-20] MEDS ORDERED: PANTOPRAZOLE 40 MG TAB PO SCH (10:00)
[2019-04-20] MEDS ORDERED: NITROGLYCERIN 0.4 MG SL TAB SL PRN (10:15)
[2019-04-20] MEDS ORDERED: MORPHINE SULF INJ 2 MG/ML SYRINGE 1ML IV PRN (10:15)
[2019-04-20] MEDS: ACCU-CHEK COMFORT CURVE STRIP VI SCH ×3 (11:30→22:22)
[2019-04-20] MEDS: InsuLIN REG 1unit/0.01ml Soln (100units/ml) SC SCH ×3 (11:30→22:00)
--- NOTE | 2019-04-20 11:38 | NUR ---
Telemetry admit from ER AMBER TUTTLE admitted to Telemetry unit after SBAR received. Patient oriented to JOSEPHINE SCHULER, primary RN, unit, room, bed, and unit policies regarding patient care and visiting hours. Patient now on continuous telemetry monitoring, tele box # [id number] and telemetry reading on arrival to unit is . PT RIGHT LOWER EXTREMOTY WOUND PICTURES TAKEN AND DRY DRESSING APPLIED, weighed by bedscale and encouraged to call if they need something, AT BEDSIDE. All questions and concerns addressed, patient verbalized understanding. Note:
[2019-04-20] MEDS ORDERED: CLOPIDOGREL BISULFATE 75 MG TAB PO ONE (11:45)
[2019-04-20] MEDS ORDERED: NEOMYCIN-BACITRACIN-POLYM UNITDOSE PKG TOP OINT TOP ONE (12:15)
[2019-04-20] MEDS ORDERED: ENAL5TAB85 PO (13:13)
--- NOTE | 2019-04-20 13:19 | NUR ---
SPOKE TO MAGALY SIEGEL REGARDING CONCERN TO CONTINUE METFORMIN, PER MAGALY MEDICATION IS BEING HELD IN CASE PT HAS PROCEDURE WITH CONTRAST
[2019-04-20] MEDS ORDERED: OPTISON 3ml Vial for INJ IV ONE (13:52)
--- NOTE | 2019-04-20 15:05 | NUR ---
SECOND UNIT PRBC STARTED ON PATIENT IN LEFT AC 18G VITALS 97.9 18 98% 147/67 77
[2019-04-20 15:25] LABS: Urine Bacteria NONE SEEN /hpf (None Seen); Urine Blood Negative /uL (Negative); Urine Specific Gravity 1.021 (1.001-1.035); Urine WBC 1 /hpf (0 - 3)
--- NOTE | 2019-04-20 19:41 | NUR ---
RECEIVED PATIENT FROM DAY SHIFT RN. PATIENT RESTING IN BED. NO S/S OF DISTRESS NOTED. FAMILY AT BEDSIDE. DENIED PAIN FOR NOW. PRESSURE DRESSING ON LEFT TORRES C/D/I. NO S/S OF BLEEDING NOTED. INSTRUCTED PATIENT NOT TO PUT WEIGHT ON HIS LEFT LEG. AND ELEVATED WITH A PILLOW. POC INSTRUCTED AND ENCOURAGED PATIENT TO CALL FOR SWITCHBOARD TROUBLESHOOTER IF NEEDED. BED IN LOWEST POSITION WITH SIDE RAILS UP X 2. CALL REA WITHIN REACH. ALARM ON. CONTINUE TO MONITOR FOR CHANGES Q1H AND PRN.
[2019-04-20] MEDS ORDERED: ATORVASTATIN 20 MG TAB PO SCH (22:00)
--- NOTE | 2019-04-20 22:26 | NUR ---
ACCU-CHECK, BS 96. NO COVERAGE. CONTINUE TO MONITOR.
--- NOTE | 2019-04-21 02:51 | NUR ---
PATIENT SLEEPING. NO S/S OF DISTRESS NOTED. CONTINUE CARE.
[2019-04-21 05:00] VITALS: BP 131/61
[2019-04-21 05:55] LABS: Basophils # (auto) 0.1 uL; Basophils % (auto) 0.5 % (0.0-2.0); Eosinophils # (auto) 0.1 uL; Eosinophils % (auto) 1.1 % (0.0-7.0); Hemoglobin 7.8 g/dL (13.5-17.5); Lymphocytes # (auto) 2.1 uL; Lymphocytes % (auto) 20.3 % (10.0-50.0); Mean Corpuscular Hemoglobin 29.8 pg (28.0-32.0); Mean Corpuscular Hgb Conc. 34.1 g/dL (32.0-36.0); Mean Corpuscular Volume 87.5 fL (80.0-100.0); Monocytes # (auto) 1.3 uL; Monocytes % (auto) 12.6 % (0.0-12.0); Neutrophils # (auto) 6.7 uL; Neutrophils % (auto) 65.5 % (37.0-80.0); Nucleated Red Blood Cells % 0.1 %; Platelet Count (auto) 181 10^3/uL (140-450); Red Blood Cells 2.62 10^6/uL (4.5-5.90); Red Cell Distribution Width 16.7 % (11.8-14.3); White Blood Cell 10.2 10^3/uL (4.4-10.8)
[2019-04-21 06:04] LABS: INR 1.02 (0.9-1.15); Partial Thromboplastin Time 21.9 sec (23.64-32.05)
[2019-04-21] MEDS: InsuLIN REG 1unit/0.01ml Soln (100units/ml) SC SCH ×2 (06:24→11:09)
[2019-04-21] MEDS: ACCU-CHEK COMFORT CURVE STRIP VI SCH ×2 (06:24→11:09)
--- NOTE | 2019-04-21 06:24 | NUR ---
ACCU-CHECK, BS 124. NO COVERAGE. CONTINUE TO MONITOR.
[2019-04-21 06:30] LABS: BUN/Creatinine Ratio 21.2; Calcium 7.7 mg/dL (8.5-10.1)
--- NOTE | 2019-04-21 07:44 | NUR ---
Opening Shift Note Received report on the patient. Awake lying in bed. Patient shows no signs of distress at this time. Discussed plan of care with the patient. Bed in lowest position, side rails up x2, and the call light is within reach. Will continue to monitor
[2019-04-21 08:21] VITALS: BP 141/65
[2019-04-21] MEDS: FERROUS SULFATE 325 MG TAB PO SCH (08:46)
--- NOTE | 2019-04-21 08:47 | NUR ---
per patient he will not take iron because it constipates him
[2019-04-21] MEDS: GABAPENTIN 100 MG CAP PO SCH (09:29)
[2019-04-21] MEDS: CARVEDILOL 3.125 MG TAB PO SCH (09:30)
[2019-04-21] MEDS ORDERED: PANTOPRAZOLE 40 MG TAB PO SCH (10:00)
[2019-04-21] MEDS ORDERED: FUROSEMIDE 20 MG/2 ML VIAL IV SCH (10:00)
[2019-04-21] MEDS ORDERED: ASPirin-EC 81 mg tab PO SCH (10:00)
--- NOTE | 2019-04-21 11:42 | NUR ---
PER PATIENT "THE LADY THAT WORKS WITH [facility] STATED I WILL MOST LIKELY GO HOME TODAY" ADVISED PT THAT I DID NOT SEE THAT IN [place] NOTED AND THAT NO ORDER IS IN AND THAT PRIMARY MD BRITANY STILL NEEDS TO SEE PATIENT. PT VERBALIZED UNDERSTANDING
[2019-04-21] MEDS ORDERED: CLOPIDOGREL BISULFATE 75 MG TAB PO ONE (12:15)
[2019-04-21 12:57] VITALS: BP 122/60
--- NOTE | 2019-04-21 14:02 | NUR ---
DR GARG ROUNDED ON PATIENT PT TO BE DISCHARGED FOLLOW UP WITH [facility]
[2019-04-21 14:07] VITALS: BP 135/64
[2019-04-22] MEDS ORDERED: CLOPIDOGREL BISULFATE 75 MG TAB PO SCH (10:00)
== END 2019-04-21 14:45 | disposition home or self-care (01) | DRG 811 ==
LOC: EDBD 06:37 → ER 06:39 → TELE 06:40 → TELE-WESTW 11:34
PROVIDERS: ADMIT Nurse Practitioner Acute Care; ATTEND Internal Medicine
PROC: 30233N1 Transfusion of Nonautologous Red Blood Cells into Peripheral Vein, Percutaneous Approach (ICD-10-PCS; principal; 2019-04-20)
DX: D62 Acute posthemorrhagic anemia (principal); I21.A1 Myocardial infarction type 2; G93.41 Metabolic encephalopathy; R57.8 Other shock; I50.23 Acute on chronic systolic (congestive) heart failure; D68.59 Other primary thrombophilia; E44.0 Moderate protein-calorie malnutrition; I13.0 Hypertensive heart and chronic kidney disease with heart failure and stage 1 through stage 4 chronic kidney disease, or unspecified chronic kidney disease; E11.51 Type 2 diabetes mellitus with diabetic peripheral angiopathy without gangrene; N18.3 Chronic kidney disease, stage 3 (moderate); I25.10 Atherosclerotic heart disease of native coronary artery without angina pectoris; E11.65 Type 2 diabetes mellitus with hyperglycemia; E11.22 Type 2 diabetes mellitus with diabetic chronic kidney disease; F41.9 Anxiety disorder, unspecified; Z68.29 Body mass index [BMI] 29.0-29.9, adult; Z87.891 Personal history of nicotine dependence; Z95.1 Presence of aortocoronary bypass graft; Z95.5 Presence of coronary angioplasty implant and graft; Z91.14 Patient's other noncompliance with medication regimen; Z79.899 Other long term (current) drug therapy
CPT/HCPCS: 36415; 36430; 70450; 71045; 80048; 80053; 80061; 81001; 82962; 83036; 84484; 85025; 85610; 85730; 86141; 86850; 86900; 86901; 86920; 93005; 93306; 93926; 96361; 96374; 99291; G0378; J1815; Q9956

== ENCOUNTER → 2019-10-07 | Outpatient (CLI) | payer OTHER ==
[~2019-10-07] MED LIST changes: +ENAL5TAB85 PO
[2019-10-07 10:02] LABS: Basophils # (auto) 0.1 10 ^3/uL (0-0.2); Basophils % (auto) 0.7 % (0.0-2.0); Eosinophils # (auto) 0.2 10 ^3/uL (0-0.8); Eosinophils % (auto) 2.2 % (0.0-7.0); Hematocrit 41.3 % (41.0-53.0); Hemoglobin 13.6 g/dL (13.5-17.5); Lymphocytes # (auto) 1.5 10 ^3/uL (0.4-5.4); Lymphocytes % (auto) 20.4 % (10.0-50.0); Mean Corpuscular Hemoglobin 32.8 pg (28.0-32.0); Mean Corpuscular Hgb Conc. 32.9 g/dL (32.0-36.0); Mean Corpuscular Volume 99.9 fL (80.0-100.0); Monocytes # (auto) 0.8 10 ^3/uL (0-1.3); Monocytes % (auto) 11.5 % (0.0-12.0); Neutrophils # (auto) 4.6 10 ^3/uL (1.6-8.6); Neutrophils % (auto) 65.2 % (37.0-80.0); Nucleated Red Blood Cells % 0.1 %; Platelet Count (auto) 204 10^3/uL (140-450); Red Blood Cells 4.13 10^6/uL (4.5-5.90); White Blood Cell 7.1 10^3/uL (4.4-10.8)
== END | disposition home or self-care (01) ==
LOC: LAB 09:30
PROVIDERS: ATTEND Internal Medicine
DX: Z12.5 Encounter for screening for malignant neoplasm of prostate (principal); E11.51 Type 2 diabetes mellitus with diabetic peripheral angiopathy without gangrene
CPT/HCPCS: 36415; 82043; 82550; 83036; 83605; 84153; 84443; 85025

== ENCOUNTER → 2019-10-15 | Outpatient (CLI) | payer OTHER | END | disposition home or self-care (01) | LOC: LAB 09:54 | PROVIDERS: ATTEND Podiatrist | DX: E11.621 Type 2 diabetes mellitus with foot ulcer (principal) | CPT/HCPCS: 87075; 87077; 87186; 87205 ==

== ENCOUNTER → 2019-10-15 | Outpatient (CLI) | payer MEDICARE, OTHER | END | disposition home or self-care (01) | LOC: XY 08:42 | PROVIDERS: ATTEND Internal Medicine | DX: I73.9 Peripheral vascular disease, unspecified (principal) | CPT/HCPCS: 93926 ==

== ENCOUNTER 2019-10-30 08:06 | Inpatient (IN) | payer OTHER ==
[2019-10-27 11:15] LABS: Basophils # (auto) 0 10 ^3/uL (0-0.2); Eosinophils # (auto) 0.2 10 ^3/uL (0-0.8); Lymphocytes # (auto) 1.2 10 ^3/uL (0.4-5.4); Monocytes # (auto) 0.7 10 ^3/uL (0-1.3); Neutrophils # (auto) 4.3 10 ^3/uL (1.6-8.6); White Blood Cell 6.4 10^3/uL (4.4-10.8)
[2019-10-27 11:16] LABS: Basophils % (auto) 0.7 % (0.0-2.0); Eosinophils % (auto) 2.9 % (0.0-7.0); Hematocrit 40.3 % (41.0-53.0); Hemoglobin 13.1 g/dL (13.5-17.5); Lymphocytes % (auto) 18.5 % (10.0-50.0); Mean Corpuscular Hemoglobin 33.2 pg (28.0-32.0); Mean Corpuscular Hgb Conc. 32.6 g/dL (32.0-36.0); Mean Corpuscular Volume 101.9 fL (80.0-100.0); Monocytes % (auto) 10.2 % (0.0-12.0); Neutrophils % (auto) 67.7 % (37.0-80.0); Platelet Count (auto) 234 10^3/uL (140-450); Red Blood Cells 3.96 10^6/uL (4.5-5.90); Red Cell Distribution Width 16.7 % (11.8-14.3)
[2019-10-27 11:33] LABS: Partial Thromboplastin Time 28.3 sec (23.64-32.05)
[2019-10-27 11:45] LABS: Potassium 5.3 mmol/L (3.5-5.1)
[2019-10-27 11:48] LABS: BUN/Creatinine Ratio 19.6; Bilirubin, Total 0.5 mg/dL (0.2-1.0); Total Protein 8.2 g/dL (6.4-8.2)
[~2019-10-30] VITALS: Ht 180.3 cm; Wt 94.8 kg
[~2019-10-30 08:06] MED LIST changes: -ENAL2.5T PO
[2019-10-30] MEDS ORDERED: IODIXANOL 320MG/ML 100ML BTL IV ONE ×2 (10:27→11:00)
[2019-10-30] MEDS ORDERED: LIDOCAINE 2%HCL (LOCAL ANESTH.) INJ 20ML MDV ONE ×2 (10:27→11:36)
[2019-10-30] MEDS ORDERED: ANGIOMAX 250 MG VIAL IV ONE ×2 (10:31→11:54)
[2019-10-30] MEDS ORDERED: MIDAZOLAM HCL 1MG/1ML-2 ML VIAL ONE ×2 (10:31→11:47)
[2019-10-30] MEDS ORDERED: SODIUM CHL 0.9% 50 ML ONE ×2 (10:31→11:54)
[2019-10-30] MEDS ORDERED: fentaNYL CITRATE 100 MCG/2 ML VL ONE ×2 (10:31→11:46)
[2019-10-30] MEDS ORDERED: hydrALAZINE HCL 20 MG/ML VL ONE (11:08)
[2019-10-30] MEDS ORDERED: MORPHINE SULF INJ 2 MG/ML SYRINGE 1ML IV PRN (14:45)
[2019-10-30] MEDS ORDERED: NITROGLYCERIN 0.4 MG SL TAB SL PRN (14:45)
[2019-10-30 17:00] VITALS: BP 159/79
[2019-10-30] MEDS: CARVEDILOL 3.125 MG TAB PO SCH (17:53)
[2019-10-30] MEDS: ATORVASTATIN 20 MG TAB PO SCH (17:53)
[2019-10-30] MEDS: ACETAMINOPHEN 500 MG TAB PO PRN (18:44)
[2019-10-30 18:47] VITALS: BP 159/79
[2019-10-30 22:00] VITALS: BP 115/75
[2019-10-30] MEDS: SODIUM CHLOR 0.9% PF (SALINE LOCK) 10ML VIAL/SYR IV SCH (22:00)
[2019-10-30] MEDS: GABAPENTIN 100 MG CAP PO SCH (22:34)
[2019-10-31] MEDS: ACETAMINOPHEN 500 MG TAB PO PRN (02:56)
[2019-10-31 05:00] VITALS: BP 121/70
--- NOTE | 2019-10-31 05:40 | NUR ---
Patient complains of nausea Patient complains of nausea, no emesis. Requesting something for nausea. Hospitalist paged. Order received for Zofran 4mg Q4HPRN. Order received, read back, verified, and placed. Will continue to monitor.
[2019-10-31] MEDS: SODIUM CHLOR 0.9% PF (SALINE LOCK) 10ML VIAL/SYR IV SCH ×3 (06:00→23:09)
[2019-10-31] MEDS ORDERED: ONDANSETRON HCL 4 MG/2 ML VIAL IV PRN (06:00)
[2019-10-31] MEDS: ASPirin-EC 81 mg tab PO SCH (06:41)
[2019-10-31] MEDS: CLOPIDOGREL BISULFATE 75 MG TAB PO SCH (06:44)
[2019-10-31] MEDS: PANTOPRAZOLE 40 MG TAB PO SCH (06:44)
[2019-10-31] MEDS: FUROSEMIDE 40 MG TAB PO SCH (06:44)
[2019-10-31] MEDS: POTASSIUM CHL 20 Meq TABLET PO SCH (06:51)
[2019-10-31 08:00] VITALS: BP 141/70
--- NOTE | 2019-10-31 08:00 | NUR ---
OPENING SHIFT NOTE ASSUMED CARE OF PATIENT AWAKE AND ALERT. NO S/S OF DISTRESS NOTED OR COMPLAINTS OF PAIN. PATIENT UPDATED ON POC FOR THE DAY AND ALL QUESTIONS ANSWERED. BED IS IN LOWEST, LOCKED POSITION WITH SIDE RAILS UP X2 AND CALL LIGHT WITHIN REACH. WILL CONTINUE TO MONITOR Q1H AND PRN.
[2019-10-31] MEDS: FERROUS SULFATE 325 MG TAB PO SCH (08:24)
[2019-10-31] MEDS: CARVEDILOL 3.125 MG TAB PO SCH ×2 (08:25→18:03)
[2019-10-31] MEDS: GABAPENTIN 100 MG CAP PO SCH ×2 (08:25→23:09)
[2019-10-31 08:28] LABS: Basophils # (auto) 0 10 ^3/uL (0-0.2); Basophils % (auto) 0.5 % (0.0-2.0); Eosinophils # (auto) 0 10 ^3/uL (0-0.8); Eosinophils % (auto) 0.3 % (0.0-7.0); Hematocrit 41.5 % (41.0-53.0); Hemoglobin 13.6 g/dL (13.5-17.5); Lymphocytes # (auto) 0.9 10 ^3/uL (0.4-5.4); Lymphocytes % (auto) 11.9 % (10.0-50.0); Mean Corpuscular Hemoglobin 33.2 pg (28.0-32.0); Mean Corpuscular Hgb Conc. 32.7 g/dL (32.0-36.0); Mean Corpuscular Volume 101.5 fL (80.0-100.0); Monocytes # (auto) 0.5 10 ^3/uL (0-1.3); Monocytes % (auto) 6.7 % (0.0-12.0); Neutrophils # (auto) 6.2 10 ^3/uL (1.6-8.6); Neutrophils % (auto) 80.6 % (37.0-80.0); Nucleated Red Blood Cells % 0.3 %; Platelet Count (auto) 260 10^3/uL (140-450); Red Blood Cells 4.09 10^6/uL (4.5-5.90); Red Cell Distribution Width 16.3 % (11.8-14.3); White Blood Cell 7.7 10^3/uL (4.4-10.8)
[2019-10-31 09:00] VITALS: BP 183/78
--- NOTE | 2019-10-31 09:00 | NUR ---
DRESSING CHANGE CHANGED PATIENT'S LEFT GROIN DRESSING. LARGE BLOOD CLOT REMOVED ALONG WITH DRESSING. SITE IS STILL SLOWLY OOZING BLOOD. DRESSING CHANGED AND SANDBAG WILL BE APPLIED.
[2019-10-31 09:15] LABS: Albumin 3.7 g/dL (3.4-5.0); BUN/Creatinine Ratio 20.2; Calcium 8.8 mg/dL (8.5-10.1); Potassium 4.3 mmol/L (3.5-5.1)
[2019-10-31 09:17] LABS: Bilirubin, Total 0.6 mg/dL (0.2-1.0); Total Protein 7.9 g/dL (6.4-8.2)
--- NOTE | 2019-10-31 10:45 | NUR ---
WOUND CARE NOTE: IN TO SEE PATIENT AT THIS TIME PER WOUND CARE CONSULT REQUEST. PATIENT WAS RECENTLY ADMITTED TO [facility] WITH DIAGNOSIS OF PVD. HE IS S/P ANGIOPLASTY TO RIGHT LOWER EXTREMITY, PERFORMED YESTERDAY IN [facility] EMB[employer]DED SOFTWARE ENGINEER. PATIENT HAS CURRENT ROSSY SCORE OF 22. PATIENT CAN SELF TURN/REPOSITION SELF. WOUND PHOTO WAS TAKEN BY BEDSIDE NURSE FOR REFERENCE UPON ADMIT. 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 HE HAS BEEN RECEIVING WOUND CARE BY DR. SALCIDO IN THE CLINIC. DR. SALCIDO WILL SEE PATIENT IN THE CLINIC FOR FOLLOW UP VISIT THIS SATURDAY. PATIENT HAS A 4 X 2 X 0.2 CM FULL THICKNESS VENOUS STASIS ULCER NOTED, WITH LIGHT SEROUS DRAINAGE, NO S/S OF INFECTION NOTED. WOUND BED IS RED, WITH PINK PERIWOUND. CLEANSED WOUND WITH WOUND CLEANSER, PATTED DRY WITH STERILE GAUZE. APPLIED GENTAMYACIN OINTMENT INTO OPEN WOUND BED, COVERED WITH OPTIFOAM GENTLE DRESSING, APPLIED LIGHT JORDANA WRAP TO RIGHT TORRES. RECOMMEND: LEAVE DRESSING ON, PATIENT WILL HAVE DRESSING CHANGED AT TIME OF CLINIC VISIT, DIETARY CONSULT FOR CHRONIC OPEN WOUND, CONTINUED MONITORING BY WOUND CARE TEAM, SKIN/WOUND CARE PLAN. Addendum: 10/31/19 at 1619 by Deyanira Lovelace RN Amended: Links added.
--- NOTE | 2019-10-31 11:09 | NUR ---
AT BEDSIDE DR MYERS AT BEDSIDE ROUNDING ON PATIENT.
--- NOTE | 2019-10-31 12:15 | NUR ---
MD/CATH SITE DR CAM AT BEDSIDE EVALUATING PATIENT. PRESSURE DRESSING APPLIED TO LEFT GROIN. PATIENT IS TO AMBULATE IN ONE HOUR AND DRESSING TO BE CHECKED IN FOUR HOURS. WILL FOLLOW THROUGH
[2019-10-31 13:00] VITALS: BP 152/65
[2019-10-31 17:00] VITALS: BP 144/72
[2019-10-31] MEDS: ATORVASTATIN 20 MG TAB PO SCH (18:03)
--- NOTE | 2019-10-31 19:30 | NUR ---
Opening Shift Note Assumed care of patient, awake and alert. No S/S of distress/SOB or pain. Pressure dressing on the groin intact. Instructed on POC and to call for assist PRN, will continue to monitor for changes Q1hr and PRN.
[2019-10-31] MEDS: ENALAPRIL MALEATE 2.5 MG TAB PO SCH (23:10)
[2019-11-01 04:00] VITALS: BP 146/74
[2019-11-01] MEDS: ASPirin-EC 81 mg tab PO SCH (06:41)
[2019-11-01] MEDS: CLOPIDOGREL BISULFATE 75 MG TAB PO SCH (06:41)
[2019-11-01] MEDS: SODIUM CHLOR 0.9% PF (SALINE LOCK) 10ML VIAL/SYR IV SCH (06:41)
[2019-11-01] MEDS: POTASSIUM CHL 20 Meq TABLET PO SCH (06:42)
[2019-11-01] MEDS: PANTOPRAZOLE 40 MG TAB PO SCH (06:43)
[2019-11-01] MEDS: FUROSEMIDE 40 MG TAB PO SCH (06:43)
[2019-11-01 06:49] LABS: Basophils # (auto) 0 10 ^3/uL (0-0.2); Basophils % (auto) 0.6 % (0.0-2.0); Eosinophils # (auto) 0.2 10 ^3/uL (0-0.8); Eosinophils % (auto) 2.2 % (0.0-7.0); Hematocrit 41.4 % (41.0-53.0); Hemoglobin 13.7 g/dL (13.5-17.5); Lymphocytes # (auto) 1.2 10 ^3/uL (0.4-5.4); Lymphocytes % (auto) 16.8 % (10.0-50.0); Mean Corpuscular Hemoglobin 33.5 pg (28.0-32.0); Mean Corpuscular Hgb Conc. 33.2 g/dL (32.0-36.0); Mean Corpuscular Volume 100.9 fL (80.0-100.0); Monocytes # (auto) 0.8 10 ^3/uL (0-1.3); Monocytes % (auto) 10.4 % (0.0-12.0); Neutrophils # (auto) 5.2 10 ^3/uL (1.6-8.6); Platelet Count (auto) 227 10^3/uL (140-450); Red Cell Distribution Width 15.8 % (11.8-14.3); White Blood Cell 7.4 10^3/uL (4.4-10.8)
[2019-11-01 08:30] VITALS: BP 129/77
--- NOTE | 2019-11-01 08:33 | NUR ---
CATH SITE REMOVED PRESSURE DRESSING. SITE HAS VISIBLE SCAB FORMED OVER THE INCISION AND IS NO LONGER OOZING. WILL NOTIFY DR CAM.
[2019-11-01] MEDS: FERROUS SULFATE 325 MG TAB PO SCH (08:35)
[2019-11-01] MEDS: CARVEDILOL 3.125 MG TAB PO SCH (08:36)
[2019-11-01] MEDS: ENALAPRIL MALEATE 2.5 MG TAB PO SCH (10:33)
[2019-11-01] MEDS: GABAPENTIN 100 MG CAP PO SCH (10:33)
--- NOTE | 2019-11-01 13:31 | NUR ---
Discharge instructions given as ordered. Encourage to follow up with PMD as instructed. All questions and concerns addressed. Patient verbalized understanding. IV removed with catheter intact, pressure dressing applied. Patient taken to vehicle via wheelchair with all personal belongings, accompanied by staff. No distress noted at time of departure.
== END 2019-11-01 12:30 | disposition home or self-care (01) | DRG 272 ==
LOC: CATH 08:06 → TELE-EAST 08:07 → EAST 18:34
PROVIDERS: ADMIT Internal Medicine; ATTEND Internal Medicine
PROC: 047K3ZZ Dilation of Right Femoral Artery, Percutaneous Approach (ICD-10-PCS; principal; 2019-10-30)
PROC: 04CK3ZZ Extirpation of Matter from Right Femoral Artery, Percutaneous Approach (ICD-10-PCS; 2019-10-30)
PROC: 047M3ZZ Dilation of Right Popliteal Artery, Percutaneous Approach (ICD-10-PCS; 2019-10-30)
PROC: 047T3ZZ Dilation of Right Peroneal Artery, Percutaneous Approach (ICD-10-PCS; 2019-10-30)
PROC: 047P3ZZ Dilation of Right Anterior Tibial Artery, Percutaneous Approach (ICD-10-PCS; 2019-10-30)
PROC: 04CM3ZZ Extirpation of Matter from Right Popliteal Artery, Percutaneous Approach (ICD-10-PCS; 2019-10-30)
PROC: 04CT3ZZ Extirpation of Matter from Right Peroneal Artery, Percutaneous Approach (ICD-10-PCS; 2019-10-30)
PROC: B41GYZZ Fluoroscopy of Left Lower Extremity Arteries using Other Contrast (ICD-10-PCS; 2019-10-30)
PROC: B41FYZZ Fluoroscopy of Right Lower Extremity Arteries using Other Contrast (ICD-10-PCS; 2019-10-30)
DX: I73.9 Peripheral vascular disease, unspecified (principal); I25.10 Atherosclerotic heart disease of native coronary artery without angina pectoris; I70.92 Chronic total occlusion of artery of the extremities; E78.5 Hyperlipidemia, unspecified; I10 Essential (primary) hypertension; Z20.828 Contact with and (suspected) exposure to other viral communicable diseases
CPT/HCPCS: 36415; 80053; 85025; 85610; 85730; 87635; 99152; 99153; C1725; C1769; G0378; J2250; J2405; Q9967

== ENCOUNTER → 2020-08-26 | Outpatient (CLI) | payer OTHER ==
[2020-08-26 13:18] LABS: Basophils # (auto) 0.1 10 ^3/uL (0-0.2); Basophils % (auto) 0.9 % (0.0-2.0); Eosinophils # (auto) 0.3 10 ^3/uL (0-0.8); Eosinophils % (auto) 3.9 % (0.0-7.0); Hematocrit 39.7 % (41.0-53.0); Hemoglobin 13.5 g/dL (13.5-17.5); Lymphocytes # (auto) 1.5 10 ^3/uL (0.4-5.4); Mean Corpuscular Hemoglobin 33.9 pg (28.0-32.0); Mean Corpuscular Volume 99.8 fL (80.0-100.0); Monocytes # (auto) 0.7 10 ^3/uL (0-1.3); Monocytes % (auto) 9.8 % (0.0-12.0); Neutrophils # (auto) 4.5 10 ^3/uL (1.6-8.6); Neutrophils % (auto) 63.4 % (37.0-80.0); Nucleated Red Blood Cells % 0.6 %; Platelet Count (auto) 205 10^3/uL (140-450); Red Blood Cells 3.98 10^6/uL (4.5-5.90); Red Cell Distribution Width 14.4 % (11.8-14.3)
[2020-08-26 13:36] LABS: INR 0.98 (0.9-1.15); Partial Thromboplastin Time 27.3 sec (23.0-31.2)
[2020-08-26 14:10] LABS: BUN/Creatinine Ratio 25.3; Calcium 9.2 mg/dL (8.5-10.1); Potassium 4.4 mmol/L (3.5-5.1)
[2020-08-26 14:14] LABS: Bilirubin, Total 0.5 mg/dL (0.2-1.0); Total Protein 8.2 g/dL (6.4-8.2)
== END | disposition home or self-care (01) ==
LOC: LAB 12:44
PROVIDERS: ATTEND Internal Medicine
DX: Z01.812 Encounter for preprocedural laboratory examination (principal)
CPT/HCPCS: 36415; 80053; 85025; 85610; 85730

== ENCOUNTER 2020-08-31 07:31 | Inpatient (IN) | payer OTHER ==
[~2020-08-31] VITALS: Ht 180.3 cm; Wt 102.1 kg
[~2020-08-31 07:31] MED LIST changes: -ENAL5TAB85 PO; -FERR-20 PO; +IBUP800T27 PO
[2020-08-31] MEDS ORDERED: IODIXANOL 320MG/ML 100ML BTL IV ONE ×2 (14:13→15:48)
[2020-08-31] MEDS ORDERED: LIDOCAINE 2%HCL (LOCAL ANESTH.) INJ 20ML MDV ONE (14:13)
[2020-08-31] MEDS ORDERED: fentaNYL CITRATE 100 MCG/2 ML VL ONE (14:35)
[2020-08-31] MEDS ORDERED: ANGIOMAX 250 MG VIAL IV ONE (14:35)
[2020-08-31] MEDS ORDERED: SODIUM CHL 0.9% 50 ML ONE (14:36)
[2020-08-31] MEDS ORDERED: MIDAZOLAM HCL 1MG/1ML-2 ML VIAL ONE (14:36)
[2020-08-31] MEDS ORDERED: cloNIDine HCL 0.1 MG TAB ONE (15:08)
[2020-08-31] MEDS ORDERED: hydrALAZINE HCL 20 MG/ML VL ONE (15:14)
[2020-08-31] MEDS ORDERED: VERAPAMIL 2.5MG/ML INJ 2ML VIAL IV ONE (15:26)
[2020-08-31] MEDS ORDERED: NITROGLYCERIN 5MG/ML 10ML VIAL IV ONE (15:26)
[2020-08-31] MEDS ORDERED: DEXTROSE (50%) 50ML SYRG IV PRN (16:45)
[2020-08-31] MEDS ORDERED: traMADol HCL 50 MG TAB PO PRN (16:45)
[2020-08-31] MEDS ORDERED: cloNIDine HCL 0.1 MG TAB PO PRN (16:45)
[2020-08-31] MEDS ORDERED: ONDANSETRON HCL 4 MG/2 ML VIAL IV PRN ×2 (16:45→17:45)
[2020-08-31] MEDS ORDERED: ACETAMINOPHEN 500 MG TAB PO PRN ×2 (16:45→17:45)
[2020-08-31] MEDS ORDERED: ZOLPIDEM TARTRATE 5 MG TAB PO PRN (16:45)
[2020-08-31] MEDS: InsuLIN REG 1unit/0.01ml Soln (100units/ml) SC SCH ×2 (17:00→22:00)
[2020-08-31] MEDS ORDERED: HYDROcodone-ACET 5/325MG TAB PO PRN (17:45)
[2020-08-31] MEDS ORDERED: MORPHINE SULF INJ 2 MG/ML SYRINGE 1ML IV PRN (17:45)
[2020-08-31] MEDS ORDERED: NITROGLYCERIN 0.4 MG SL TAB SL PRN (17:45)
[2020-08-31] MEDS: ACCU-CHEK COMFORT CURVE STRIP VI SCH ×2 (18:01→22:00)
[2020-08-31 19:00] VITALS: BP 135/68
[2020-08-31 19:55] VITALS: BP 146/68
[2020-08-31 20:05] VITALS: BP 146/68
[2020-08-31 21:08] VITALS: BP 130/59
[2020-08-31] MEDS: SODIUM CHLOR 0.9% PF (SALINE LOCK) 10ML VIAL/SYR IV SCH (22:00)
[2020-08-31 22:08] VITALS: BP 137/55
[2020-08-31 23:10] VITALS: BP 123/64
[2020-09-01 05:00] VITALS: BP 152/64
[2020-09-01] MEDS: SODIUM CHLOR 0.9% PF (SALINE LOCK) 10ML VIAL/SYR IV SCH (06:00)
[2020-09-01 06:18] LABS: Basophils # (auto) 0 10 ^3/uL (0-0.2); Basophils % (auto) 0.7 % (0.0-2.0); Eosinophils # (auto) 0.1 10 ^3/uL (0-0.8); Eosinophils % (auto) 1.8 % (0.0-7.0); Hematocrit 35.3 % (41.0-53.0); Lymphocytes # (auto) 0.9 10 ^3/uL (0.4-5.4); Lymphocytes % (auto) 13.6 % (10.0-50.0); Monocytes # (auto) 0.7 10 ^3/uL (0-1.3); Neutrophils # (auto) 4.9 10 ^3/uL (1.6-8.6); Neutrophils % (auto) 73.9 % (37.0-80.0); Nucleated Red Blood Cells % 0.1 %; Platelet Count (auto) 198 10^3/uL (140-450); Red Blood Cells 3.53 10^6/uL (4.5-5.90); Red Cell Distribution Width 14.9 % (11.8-14.3); White Blood Cell 6.6 10^3/uL (4.4-10.8)
[2020-09-01 06:35] LABS: BUN/Creatinine Ratio 20.5; Calcium 8.2 mg/dL (8.5-10.1); Potassium 3.9 mmol/L (3.5-5.1)
[2020-09-01] MEDS: InsuLIN REG 1unit/0.01ml Soln (100units/ml) SC SCH ×2 (06:41→11:24)
[2020-09-01] MEDS: ACCU-CHEK COMFORT CURVE STRIP VI SCH ×2 (06:41→11:24)
[2020-09-01 09:00] VITALS: BP 129/82
[2020-09-01] MEDS ORDERED: PANTOPRAZOLE 40 MG TAB PO SCH (10:00)
[2020-09-01] MEDS ORDERED: CLOPIDOGREL BISULFATE 75 MG TAB PO SCH (10:00)
[2020-09-01] MEDS ORDERED: ASPirin 81 mg TAB PO SCH (10:00)
[2020-09-01 11:56] VITALS: BP 129/82
== END 2020-09-01 12:45 | disposition home or self-care (01) | DRG 254 ==
LOC: CATH 07:31 → TELE-WESTW 18:34 → WEST WING 23:33
PROVIDERS: ADMIT Internal Medicine; ATTEND Internal Medicine
PROC: B41G1ZZ Fluoroscopy of Left Lower Extremity Arteries using Low Osmolar Contrast (ICD-10-PCS; principal; 2020-08-31)
PROC: 047K3Z1 Dilation of Right Femoral Artery using Drug-Coated Balloon, Percutaneous Approach (ICD-10-PCS; 2020-08-31)
PROC: 047M3Z1 Dilation of Right Popliteal Artery using Drug-Coated Balloon, Percutaneous Approach (ICD-10-PCS; 2020-08-31)
PROC: B41F1ZZ Fluoroscopy of Right Lower Extremity Arteries using Low Osmolar Contrast (ICD-10-PCS; 2020-08-31)
DX: I73.9 Peripheral vascular disease, unspecified (principal); I10 Essential (primary) hypertension; E78.5 Hyperlipidemia, unspecified; I25.10 Atherosclerotic heart disease of native coronary artery without angina pectoris; R73.03 Prediabetes; Z79.01 Long term (current) use of anticoagulants; Z20.822 Contact with and (suspected) exposure to COVID-19
CPT/HCPCS: 36415; 80048; 82962; 85025; 93005; 99152; 99153; C1769; G0378; J2250; J3490; Q9967

== ENCOUNTER → 2020-09-28 | Outpatient (CLI) | payer OTHER | END | disposition home or self-care (01) | LOC: LAB 16:42 | PROVIDERS: ATTEND Internal Medicine | DX: S81.802A Unspecified open wound, left lower leg, initial encounter (principal); X58.XXXA Exposure to other specified factors, initial encounter; Y93.89 Activity, other specified; Y92.89 Other specified places as the place of occurrence of the external cause; Y99.8 Other external cause status | CPT/HCPCS: 87077; 87186; 87205 ==

== ENCOUNTER 2020-12-05 08:21 | Day surgery (SDC) | payer OTHER ==
[~2020-12-05] VITALS: Ht 180.3 cm; Wt 103.0 kg
[~2020-12-05 08:21] MED LIST changes: +ENAL2.5T7 PO
[2020-12-05] MEDS ORDERED: IODIXANOL 320MG/ML 100ML BTL IV ONE ×2 (10:04→11:21)
[2020-12-05] MEDS ORDERED: LIDOCAINE 2%HCL (LOCAL ANESTH.) INJ 20ML MDV ONE ×2 (10:04→10:57)
[2020-12-05] MEDS ORDERED: HEPARIN IN NS 1000Units/500mL 1,500 ML ONE (10:05)
[2020-12-05] MEDS ORDERED: ANGIOMAX 250 MG VIAL IV ONE (10:15)
[2020-12-05] MEDS ORDERED: fentaNYL CITRATE 100 MCG/2 ML VL ONE (10:16)
[2020-12-05] MEDS ORDERED: SODIUM CHL 0.9% 50 ML ONE (10:16)
[2020-12-05] MEDS ORDERED: MIDAZOLAM HCL 2MG/2ML 2ml VIAL (1mg/ml) ONE (10:16)
[2020-12-05] MEDS ORDERED: hydrALAZINE HCL 20 MG/ML VL ONE (11:56)
== END 2020-12-05 14:33 | disposition home or self-care (01) ==
LOC: CATH 08:21
PROVIDERS: ATTEND Internal Medicine
DX: I70.213 Atherosclerosis of native arteries of extremities with intermittent claudication, bilateral legs (principal); I10 Essential (primary) hypertension; E78.5 Hyperlipidemia, unspecified; I25.2 Old myocardial infarction; E11.9 Type 2 diabetes mellitus without complications; I25.799 Atherosclerosis of other coronary artery bypass graft(s) with unspecified angina pectoris; Z68.31 Body mass index [BMI] 31.0-31.9, adult; Z20.822 Contact with and (suspected) exposure to COVID-19; Z87.891 Personal history of nicotine dependence; Z79.82 Long term (current) use of aspirin; Z79.899 Other long term (current) drug therapy
CPT/HCPCS: 37224; 37228; 75716; C1725; C1760; C1769; C1894; J0360; J0583; J1644; J2250; J3010; Q9967; U0003; 99152; 99153

== ENCOUNTER → 2020-12-21 | Outpatient (CLI) | payer OTHER | END | disposition home or self-care (01) | LOC: XYW 12:07 | PROVIDERS: ATTEND Internal Medicine | DX: I08.0 Rheumatic disorders of both mitral and aortic valves (principal); N43.3 Hydrocele, unspecified; I72.4 Aneurysm of artery of lower extremity; I70.201 Unspecified atherosclerosis of native arteries of extremities, right leg; M79.81 Nontraumatic hematoma of soft tissue; N50.89 Other specified disorders of the male genital organs; R10.30 Lower abdominal pain, unspecified; N49.2 Inflammatory disorders of scrotum | CPT/HCPCS: 76870; 93306; 93926 ==

== ENCOUNTER → 2020-12-21 | Outpatient (CLI) | payer OTHER ==
[2020-12-21 16:39] LABS: Basophils # (auto) 0.1 10 ^3/uL (0-0.2); Basophils % (auto) 0.6 % (0.0-2.0); Eosinophils # (auto) 0.2 10 ^3/uL (0-0.8); Eosinophils % (auto) 1.9 % (0.0-7.0); Hematocrit 35.9 % (41.0-53.0); Hemoglobin 11.8 g/dL (13.5-17.5); Lymphocytes # (auto) 1.2 10 ^3/uL (0.4-5.4); Lymphocytes % (auto) 12.9 % (10.0-50.0); Mean Corpuscular Hemoglobin 32.8 pg (28.0-32.0); Mean Corpuscular Hgb Conc. 32.8 g/dL (32.0-36.0); Mean Corpuscular Volume 100.1 fL (80.0-100.0); Monocytes # (auto) 1.1 10 ^3/uL (0-1.3); Monocytes % (auto) 11.3 % (0.0-12.0); Neutrophils % (auto) 73.3 % (37.0-80.0); Red Blood Cells 3.59 10^6/uL (4.5-5.90); Red Cell Distribution Width 15.7 % (11.8-14.3); White Blood Cell 9.6 10^3/uL (4.4-10.8)
[2020-12-21 16:48] LABS: INR 1.07 (0.9-1.15)
[2020-12-21 17:03] LABS: Albumin 3.4 g/dL (3.4-5.0); BUN/Creatinine Ratio 16.9; Calcium 8.6 mg/dL (8.5-10.1); Potassium 4.1 mmol/L (3.5-5.1)
[2020-12-21 17:06] LABS: Bilirubin, Total 0.6 mg/dL (0.2-1.0); Total Protein 8.1 g/dL (6.4-8.2)
== END | disposition home or self-care (01) ==
LOC: LAB 16:13
PROVIDERS: ATTEND Internal Medicine
DX: Z01.812 Encounter for preprocedural laboratory examination (principal)
CPT/HCPCS: 36415; 80053; 85025; 85610

== ENCOUNTER 2020-12-22 07:19 | Day surgery (SDC) | payer OTHER ==
[2020-12-22] MEDS ORDERED: THROMBIN (BOVINE) 5000 UNIT SOL VIAL TP ONE (08:00)
[2020-12-22] MEDS ORDERED: LIDOCAINE 2%HCL (LOCAL ANESTH.) INJ 20ML MDV ONE (08:18)
== END 2020-12-22 12:25 | disposition home or self-care (01) ==
LOC: CATH 07:19
PROVIDERS: ATTEND Internal Medicine
DX: R10.30 Lower abdominal pain, unspecified (principal); I72.4 Aneurysm of artery of lower extremity; I72.9 Aneurysm of unspecified site; I25.709 Atherosclerosis of coronary artery bypass graft(s), unspecified, with unspecified angina pectoris; I50.9 Heart failure, unspecified; Z95.5 Presence of coronary angioplasty implant and graft; Z87.891 Personal history of nicotine dependence; Z79.899 Other long term (current) drug therapy
CPT/HCPCS: 36002; 76942; J7040; 99152

== ENCOUNTER → 2021-04-26 | Outpatient (CLI) | payer OTHER ==
[2021-04-26 15:49] LABS: Cholesterol 140 mg/dL (< 200); HDL Cholesterol 58 mg/dL (40-59); LDL Cholesterol 68 mg/dL (< 100); Triglycerides 127 mg/dL (< 150)
== END | disposition home or self-care (01) ==
LOC: LAB 14:25
PROVIDERS: ATTEND Internal Medicine
DX: I13.0 Hypertensive heart and chronic kidney disease with heart failure and stage 1 through stage 4 chronic kidney disease, or unspecified chronic kidney disease (principal); E11.9 Type 2 diabetes mellitus without complications
CPT/HCPCS: 36415; 80061; 82043; 83036; 83880; 84153